=== PATIENT | female | born 1945 | race Caucasian/White ===

== ENCOUNTER 2016-09-18 23:48 | Emergency (ER) | payer MEDICARE ==
[2016-09-19] MEDS ORDERED: Morphine INJ* 4 MG/ML 1 ML CARPUJECT IV ONE (01:10)
[2016-09-19] MEDS ORDERED: NS 0.9% 1000 ML* 1,000 ML IV ONE (01:10)
[2016-09-19] MEDS ORDERED: Ondansetron INJ* 2 MG/ML VIAL IV ONE (01:10)
[2016-09-19 01:24] LABS: Hematocrit 38 % (35-47); Hemoglobin 12.7 g/dl (12.0-16.0); Mean Corpuscular HGB Conc 34 g/dl (31-36); Mean Corpuscular Hemoglobin 32 pg (27-31); Mean Corpuscular Volume 94 fL (80-97); Mean Platelet Volume 8 um3 (7.4-10.4); Red Blood Count 4.04 10^6/ul (4.0-5.4); Red Cell Distribution Width 14 % (10.5-15); White Blood Count 9.1 10^3/ul (3.5-10.8)
[2016-09-19 01:35] LABS: Albumin 3.9 g/dL (3.2-5.2); BUN/Creatinine Ratio 18.8 (8-20); Calcium 9.4 mg/dL (8.6-10.3); EGFR African American 84.5 (>60); EGFR Non-African American 65.7 (>60); Globulin 3.1 g/dL (2-4); Potassium 3.6 mmol/L (3.5-5.0); Total Bilirubin 0.8 mg/dL (0.2-1.0)
[2016-09-19] MEDS ORDERED: Iohexol 300* (CONTRAST) 10 ML SDV IV ONE (02:34)
[2016-09-19 03:12] LABS: Urine Bacteria 1+ (Absent); Urine Bilirubin Negative (Negative); Urine Glucose Negative (Negative); Urine Nitrite Negative (Negative)
[2016-09-19] MEDS ORDERED: Levofloxacin TAB* 500 MG PO ONE (03:50)
[2016-09-19] MEDS ORDERED: Sulfamethox/Trimethoprim DS 800/160* TAB PO ONE (04:03)
--- NOTE | 2016-09-19 04:47 | ED ---
Abel Daily Aidan, scribed for Oliviadee deeHelenJethro on 09/19/16 at 0102 . Abdominal Pain/Female - HPI Summary HPI Summary: 71 y/o female presents to the ED with a complaint of acute, constant, moderate ( 5/10), diffuse abdominal pain that began yesterday afternoon. Associated symptoms include a mild chest twinge. Pt denies any nausea, diarrhea, constipation, SOB, or Hx of kidney stones. SHx of appendectomy and cholecystectomy. - History of Current Complaint Chief Complaint: EDAbdPain Stated Complaint: ABD PAIN Time Seen by Provider: 09/19/16 00:37 Hx Obtained From: Patient ?: No Onset/Duration: Sudden Onset Timing: Constant Severity Initially: Moderate Severity Currently: Moderate Pain Intensity: 5 Pain Scale Used: 0-10 Numeric Location: Diffuse Radiates: No Character: Other: - not described Aggravating Factor(s): Other: - unknown Alleviating Factor(s): Other: - unknown Associated Signs and Symptoms: Positive: Other: - mild chest twinge Allergies/Adverse Reactions: Allergies Allergy/AdvReac Type Severity Reaction Status Date / Time No Known Allergies Allergy Verified 02/03/15 10:46 PMH/Surg Hx/FS Hx/Imm Hx Endocrine/Hematology History: Denies: Hx Diabetes, Hx Systemic Lupus Erythematosus, Hx Thyroid Disease Cardiovascular History: Reports: Hx Angina, Hx Hypercholesterolemia, Hx Hypertension, Hx Valvular Heart Disease - MVP, Other Cardiovascular Problems/ Disorders - cardiac arrhythmia Denies: Hx Congestive Heart Failure, Hx Coronary Artery Disease, Hx Myocardial Infarction Respiratory History: Reports: Other Respiratory Problems/Disorders - RIGHT LUNG CA Denies: Hx Asthma, Hx Chronic Obstructive Pulmonary Disease (COPD) - "MILD EMPHYSEMA" GI History: Denies: Hx Ulcer History: Denies: Hx Dialysis, Hx Renal Disease Musculoskeletal History: Denies: Hx Rheumatoid Arthritis, Hx Osteoporosis Neurological History: Reports: Hx CVA - Cancer History Cancer Type, Location and Year: LUNG Hx Chemotherapy: No - Surgical History Surgery Procedure, Year, and Place: gallbladder, appendectomy, tonsillectomy Infectious Disease History: No Infectious Disease History: Denies: Hx Hepatitis, Hx Human Immunodeficiency Virus (HIV), Traveled Outside the [place] in Last 30 Days - Family History Known Family History: Negative: Cardiac Disease, Hypertension, Diabetes - Social History Occupation: Retired Lives: Alone Alcohol Use: Daily Alcohol Amount: 2 BEERS DAILY Substance Use Type: Reports: None Smoking Status (MU): Former Smoker Have You Smoked in the Last Year: No Review of Systems Constitutional: Negative Eyes: Negative ENT: Negative Negative: Palpitations, Chest Pain - chest twinge, not described as a pain Respiratory: Negative Positive: Abdominal Pain - diffuse Genitourinary: Negative Musculoskeletal: Negative Skin: Negative Neurological: Negative Psychological: Normal All Other Systems Reviewed And Are Negative: Yes Physical Exam Triage Information Reviewed: Yes Vital Signs On Initial Exam: Initial Vitals Temp Pulse Resp BP Pulse Ox 99.0 F 86 20 121/60 96 09/19/16 00:00 09/19/16 00:00 09/19/16 00:00 09/19/16 00:00 09/19/16 00:00 Vital Signs Reviewed: Yes Appearance: Positive: Well-Appearing, No Pain Distress Skin: Positive: Warm, Skin Color Reflects Adequate Perfusion, Dry Head/Face: Positive: Normal Head/Face Inspection Eyes: Positive: EOMI, XENIA ENT: Positive: Normal ENT inspection Neck: Positive: Supple, Nontender Respiratory/Lung Sounds: Positive: Clear to Auscultation, Breath Sounds Present Cardiovascular: Positive: RRR, Pulses are Symmetrical in both Upper and Lower Extremities Abdomen Description: Positive: Soft. Negative: Nontender - diffuse abdominal tenderness Bowel Sounds: Positive: Present Musculoskeletal: Positive: Strength/ROM Intact Neurological: Positive: Sensory/Motor Intact, Alert, Oriented to Person Place, Time Psychiatric: Positive: Affect/Mood Appropriate AVPU Assessment: Alert Diagnostics - Vital Signs Vital Signs Temp Pulse Resp BP Pulse Ox 09/19/16 00:00 99.0 F 86 20 121/60 96 - Laboratory Result Diagrams: 09/19/16 00:55 09/19/16 00:55 Lab Statement: Any lab studies that have been ordered have been reviewed, and results considered in the medical decision making process. - CT ABD/PEL CT CT Interpretation: Positive (See Comments) - IMPRESSION: SUSPECTED CYSTITIS MAY BE CORRELATED WITH URINALYSIS. ENDOMETRIAL THICKENING SHOULD BE CORRELATED WITH ANY RECENT GYNECOLOGIC PROCEDURE AND POSSIBLE ENDOMETRIAL THICKENING MAY BE FURTHER EVALUATED WITH US. FOCAL RIGHT LOWER LOBE CONSOLIDATION ARE PRESENT PNEUMONIA OR SCARRING. CT Interpretation Completed By: Radiologist - [employer] Abdominal Pain Fem Course/Dx - Course Course Of Treatment: This is a 71 y/o female presents with acute, constant, moderate, diffuse abdominal pain that began yesterday afternoon. Associated symptoms include a mild chest twinge. Pt denies any nausea, diarrhea, constipation, SOB, or Hx of kidney stones. SHx of appendectomy and cholecystectomy. She does not wish to take pain medication. - Diagnoses Provider Diagnoses: UTI (urinary tract infection) Discharge - Discharge Plan Condition: Stable Disposition: HOME Discharge Disposition Comment: Please follow up with your primary care physician in 3 days. Patient Education Materials: Urinary Tract Infection in Women (ED) The documentation as recorded by the Abel amaro Aidan accurately reflects the service I personally performed and the decisions made by , Jethro Hernandez.
[2016-09-19 06:07] VITALS: BP 118/70
--- NOTE | 2016-09-19 08:05 | RAD ---
INDICATION: Abdominal pain, evaluate for diverticulitis. COMPARISON: Comparison is made with a prior CT urogram from December 06, [address] of the chest from May 25, 2016. TECHNIQUE: A CT scan of the abdomen and pelvis was performed with intravenous and oral contrast following intravenous injection of 121 ml of Omnipaque 300 nonionic contrast. Contiguous axial sections were obtained from the lung bases through the symphysis pubis. Images were reconstructed in the coronal and sagittal planes. FINDINGS: There is a masslike consolidation present at the right lung base located posterior in the right lower lobe which is unchanged from the prior CT of the chest. There are 2 small subcentimeter nodular densities in the left lower lobe which are also unchanged from the prior CT of the chest. The larger measures 0.6 cm in size. No pleural effusion is seen. The liver is moderately enlarged and decreased in attenuation suggestive of fatty infiltration. There is a small 0.6 cm fluid density lesion in the posterior segment of the right hepatic lobe which is unchanged from the prior CT urogram and most consistent with a cyst. The patient is status post cholecystectomy. The spleen is normal in size. The pancreas appears to be within normal limits. The kidneys and adrenal glands are normal in size. No hydronephrosis is seen. No significant focal renal abnormality is seen. The urinary bladder wall appears diffusely thickened. The aorta is normal in caliber with moderate calcific plaque present. No significant enlarged retroperitoneal lymph nodes are seen. The stomach, small and large bowel appear nondistended. The appendix is not visualized although no inflammatory changes are appreciated in the right lower quadrant. There is no evidence for diverticulitis or colitis. The uterus is anteverted and normal in size. There is air within the endometrial cavity. There is also suggestion of possible endometrial thickening. No free intraperitoneal air is or fluid seen. No significant focal osseous abnormality is seen. IMPRESSION: 1. THICKENING OF THE URINARY BLADDER WALL SUGGESTING THE POSSIBILITY OF CYSTITIS, RECOMMEND CLINICAL CORRELATION. 2. POSSIBLE ENDOMETRIAL THICKENING AND AIR WITHIN THE ENDOMETRIAL CAVITY RECOMMEND CORRELATION WITH POSSIBLE RECENT GYNECOLOGIC PROCEDURE VERSUS INFECTION. RECOMMEND A PELVIC ULTRASOUND FOR FURTHER EVALUATION. 3. RIGHT LOWER LOBE MASSLIKE CONSOLIDATION AND LEFT BASILAR PULMONARY NODULES, UNCHANGED.
--- NOTE | 2016-09-22 12:19 | PN ---
Progress Note - Progress Note Note: Patient was discharged on Bactrim and Macrobid, which a sensitive. No further action needed.
== END 2016-09-19 05:59 | disposition home or self-care (01) ==
LOC: ED 23:48
DX: N39.0 Urinary tract infection, site not specified (principal); R10.9 Unspecified abdominal pain; Z87.891 Personal history of nicotine dependence
CPT/HCPCS: 36415; 74177; 80053; 81003; 81015; 83605; 83690; 85025; 85610; 85730; 87040; 87077; 87086; 87186; 96361; 96374; 96375; 99282; A9270-GY; J2270; J2405; Q9967

== ENCOUNTER 2017-08-21 07:10 | Emergency (ER) | payer MEDICARE ==
[2017-08-21] MEDS ORDERED: Acetaminophen TAB* 325 MG PO ONE (07:51)
--- NOTE | 2017-08-21 08:23 | RAD ---
INDICATION: Trauma. COMPARISON: There are no prior studies available for comparison. TECHNIQUE: Contiguous axial sections were obtained from the skull base through the T3 vertebra. Images were reconstructed in the sagittal and coronal planes. FINDINGS: There is straightening of the cervical spine with loss of the normal cervical lordosis. No prevertebral soft tissue swelling or fracture is seen. At the C1-C2 level there is calcification around the odontoid process most consistent with chronic arthritic change. At the C3-C4 level there is mild posterior uncinate process spurring and hypertrophic changes within the facet joints. No significant spinal canal or neural foraminal narrowing is seen. At the C3-C4 level there is mild posterior uncinate process spurring and hypertrophic changes within the facet joints. No significant spinal canal narrowing is present. There is mild to moderate bilateral neural foraminal narrowing. At the C4-C5 level there is posterior uncinate process spurring and hypertrophic changes within the facet joints. No significant spinal canal narrowing is present. There is mild to moderate bilateral neural foraminal narrowing. At the C5-C6 level there is mild posterior uncinate process spurring and hypertrophic changes within the facet joints. No significant spinal canal narrowing is present. There is moderate bilateral neural foraminal narrowing. At C6-C7 level there is posterior uncinate process spurring which causes mild spinal canal narrowing. There is moderate to severe bilateral neural foraminal narrowing. IMPRESSION: 1. STRAIGHTENING OF THE CERVICAL SPINE, NO EVIDENCE FOR FRACTURE OR SUBLUXATION. 2. MODERATE CERVICAL SPONDYLOSIS.
--- NOTE | 2017-08-21 08:23 | RAD ---
INDICATION: Head injury, on Coumadin. COMPARISON: Comparison is made with a prior CT of the brain from August 01, 2016. TECHNIQUE: Contiguous axial sections of the brain were obtained from the skull base to the vertex without contrast. FINDINGS: The ventricles, cisterns and sulci are enlarged consistent with diffuse atrophy. There is more focal atrophy present within the midbrain and miguel on the right side and cerebellum which appears unchanged. No other focal abnormality or mass effect is seen. There is no evidence for hemorrhage. No significant focal osseous abnormality is seen. The visualized portion of the paranasal sinuses and mastoid air cells appear clear. IMPRESSION: 1. NO EVIDENCE FOR ACUTE INTRACRANIAL ABNORMALITY. 2. RELATIVELY SEVERE ATROPHY WITHIN THE BRAINSTEM AND CEREBELLUM, UNCHANGED.
[2017-08-21 08:43] VITALS: BP 120/84
--- NOTE | 2017-08-21 09:36 | ED ---
Zeina Daily Abhishek, scribed for Genie Mendoza MD on 08/21/17 at 0848 . Head Injury - HPI Summary HPI Summary: This patient is a 72 year old F presenting to [facility] with a chief complaint of Head Injury since today (08/21/17) morning. The patient states she was getting up and the wheelchair slipped when leaning on it. Patient later states she thought she could attempt to make it to the edge between the chair and the bed, to transfer from bed to the wheelchair (per usual) but failed and she hit the laminate concrete floor and hit her head. According to the patient, after the fall, [employer] contacted her son and he helped her onto the wheelchair. Also according to the patient, the injury is no longer painful (when site of injury is not palpated), however she is aware of it. The head injury is described as discrete on the back of the head. Patient has a PMHx of stroke (2003) with left sided weakness. The patient rates the pain 0/10 in severity. Symptoms aggravated by nothing. Symptoms alleviated by nothing. Patient reports fatigue. Patient denies LOC, dizziness, chest pain, SOB, N/V, neck pain, and states there are no other pertinent injuries. The following medications are taken by the patient: Warfarin - History Of Current Complaint Chief Complaint: EDHeadInjury Stated Complaint: FALL Time Seen by Provider: 08/21/17 07:24 Hx Obtained From: Patient Mechanism Of Injury: Fall From Height Of: - standing Onset/Duration: Started Hours Ago - Morning (08/21/17), Traumatic, Still Present Onset of Pain: Immediate, Hours - Morning (08/21/17) Severity Currently: None Severity Initially: Mild Pain Intensity: 0 Pain Scale Used: 0-10 Numeric Location of Head Injury: Occipital Location: Discrete At: - post occiput Character: Aching Aggravating Factor(s): Other: - Nothing Alleviating Factor(s): Other: - Nothing Associated Signs And Symptoms: Negative Anticoagulant Therapy: Coumadin - Allergies/Home Medications Allergies/Adverse Reactions: Allergies Allergy/AdvReac Type Severity Reaction Status Date / Time Amoxicillin [From Augmentin] Allergy Diarrhea Verified 08/21/17 07:24 Clavulanic Acid Allergy Diarrhea Verified 08/21/17 07:24 [From Augmentin] PMH/Surg Hx/FS Hx/Imm Hx Previously Healthy: No Endocrine/Hematology History: Denies: Hx Diabetes, Hx Systemic Lupus Erythematosus, Hx Thyroid Disease Cardiovascular History: Reports: Hx Angina, Hx Hypercholesterolemia, Hx Hypertension, Hx Valvular Heart Disease - MVP, Other Cardiovascular Problems/ Disorders - cardiac arrhythmia Denies: Hx Congestive Heart Failure, Hx Coronary Artery Disease, Hx Myocardial Infarction Respiratory History: Reports: Other Respiratory Problems/Disorders - RIGHT LUNG CA Denies: Hx Asthma, Hx Chronic Obstructive Pulmonary Disease (COPD) - "MILD EMPHYSEMA" GI History: Denies: Hx Ulcer History: Denies: Hx Dialysis, Hx Renal Disease Musculoskeletal History: Denies: Hx Rheumatoid Arthritis, Hx Osteoporosis Neurological History: Reports: Hx CVA - Cancer History Cancer Type, Location and Year: LUNG Hx Chemotherapy: No - Surgical History Surgery Procedure, Year, and Place: gallbladder, appendectomy, tonsillectomy Infectious Disease History: No Infectious Disease History: Denies: Hx Hepatitis, Hx Human Immunodeficiency Virus (HIV), Traveled Outside the [place] in Last 30 Days - Family History Known Family History: Positive: Other Negative: Cardiac Disease, Hypertension, Diabetes - Social History Lives: Alone - has link to life and son has apartment nearby Alcohol Use: Occasionally Substance Use Type: Reports: None Smoking Status (MU): Former Smoker Have You Smoked in the Last Year: No Review of Systems Positive: Fatigue Eyes: Negative ENT: Negative Negative: Chest Pain Negative: Shortness Of Breath Negative: Vomiting, Nausea Genitourinary: Negative Musculoskeletal: Other - Negative neck pain Positive: Other - Head injury on the back of the head Skin: Negative Neurological: Other - Negative LOC Psychological: Normal All Other Systems Reviewed And Are Negative: Yes Physical Exam - Summary Physical Exam Summary: Appearance: Well-appearing, no pain distress, Well-nourished Skin: Warm, color reflects adequate perfusion Head: Normal Head/Face inspection. No sign of trauma Eyes: Conjunctiva clear PERRL EOMI ENT: Normal . TM's without hemotympanum. Neck: Supple, nontender Respiratory: Lungs clear, Normal breath sounds, no respiratory distress; chest wall nontender Cardio: RRR, No murmur, pulses normal, brisk capillary refill Abdomen: soft, nontender Bowel sounds: present Musculoskeletal: Strength Intact/ ROM intact, No bony tenderness Neuro: Alert, muscle tone normal, facial symmetry, speech normal, pre-existing left hemiparesis, moves all extremities well, no new focal deficit. Psych: normal Triage Information Reviewed: Yes Vital Signs On Initial Exam: Initial Vitals Temp Pulse Resp BP Pulse Ox 97.1 F 73 17 116/73 96 08/21/17 07:19 08/21/17 07:19 08/21/17 07:19 08/21/17 07:19 08/21/17 07:19 Vital Signs Reviewed: Yes - [place] Coma Scale Coma Scale Total: 15 Diagnostics - Vital Signs Vital Signs Temp Pulse Resp BP Pulse Ox 08/21/17 08:42 98.1 F 66 18 120/84 96 08/21/17 07:38 66 93 08/21/17 07:37 122/85 08/21/17 07:19 97.1 F 73 17 116/73 96 - Laboratory Lab Statement: Any lab studies that have been ordered have been reviewed, and results considered in the medical decision making process. - CT Brain CT CT Interpretation Completed By: Radiologist - Brain CT reveals 1. NO EVIDENCE FOR ACUTE INTRACRANIAL ABNORMALITY. 2. RELATIVELY SEVERE ATROPHY WITHIN THE BRAINSTEM AND CEREBELLUM, UNCHANGED. ED physician has reviewed this radiology report. Cervical spine CT CT Interpretation Completed By: Radiologist - CT Cervical Spine reveals 1. STRAIGHTENING OF THE CERVICAL SPINE, NO EVIDENCE FOR FRACTURE OR SUBLUXATION. 2. MODERATE CERVICAL SPONDYLOSIS. ED physician has reviewed this radiology report. Re-Evaluation - Re-Evaluation First Eval Re-Evaluation Time: 09:00 - informed of CT results. No new C/o. agrees to d/c. Change: Improved Head Injury Course/Dx Course Of Treatment: Pt medications were reviewed this visit. The following medications are taken by the patient: Warfarin. Patients allergies were noted. CT Cervical Spine reveals 1. STRAIGHTENING OF THE CERVICAL SPINE, NO EVIDENCE FOR FRACTURE OR SUBLUXATION. 2. MODERATE CERVICAL SPONDYLOSIS. Brain CT reveals 1. NO EVIDENCE FOR ACUTE INTRACRANIAL BNORMALITY. Pt had neg CT brain and neg CT cervical spine. No new symptoms while being observed in ED. Pt stable for DC, agrees to DC. 2. RELATIVELY SEVERE ATROPHY WITHIN THE BRAINSTEM AND CEREBELLUM, UNCHANGED. ED physician has reviewed these radiology reports and agrees. The patient will be discharged home. The dx will be scalp contusion and head injury. - Diagnoses Differential Diagnosis/HQI/PQRI: Cerebral Contusion, Cervical Sprain, Concussion Without LOC, Contusion, Intracranial Bleed, Skull Fracture Provider Diagnoses: Scalp contusion, Head injury Discharge - Discharge Plan Condition: Stable Disposition: HOME Patient Education Materials: Head Injury (ED), Fall Prevention (ED) Referrals: Jennyfer Gibbs NP [Primary Care Provider] - Additional Instructions: You CT brain and CT of your cervical spine did not show any abnormality. You may resume your usual activities. We gave you one dose of acetaminophen (tylenol) at 0808. Return to the ER if you have any new or worsening symptoms. The documentation as recorded by the Zeina amaro Abhishek accurately reflects the service I personally performed and the decisions made by , Genie Mendoza MD.
== END 2017-08-21 09:06 | disposition home or self-care (01) ==
LOC: ED 07:10
DX: S09.90XA Unspecified injury of head, initial encounter (principal); S00.03XA Contusion of scalp, initial encounter; E78.00 Pure hypercholesterolemia, unspecified; I10 Essential (primary) hypertension; I34.1 Nonrheumatic mitral (valve) prolapse; J44.9 Chronic obstructive pulmonary disease, unspecified; C34.91 Malignant neoplasm of unspecified part of right bronchus or lung; Z87.891 Personal history of nicotine dependence; W01.0XXA Fall on same level from slipping, tripping and stumbling without subsequent striking against object, initial encounter; Y93.9 Activity, unspecified; Y92.9 Unspecified place or not applicable
CPT/HCPCS: 70450; 72125; 99282; A9270-GY

== ENCOUNTER 2018-04-24 06:25 | Emergency (ER) | payer MEDICARE ==
--- OUTSIDE RECORDS SUMMARY | 2018-04-24 06:36 | XMS REPORT ---
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 [address] PayID: [id number] [place] [address] Problems Description No Information Family History Date Family Member(s) Problem(s) Comments Father due to CHF () Father due to Cancer, Lung () - age 61 Mother due to "Old Age" () First Son Healthy Second Son Healthy First Brother Cancer, Prostate First Sister No Current Problems Paternal Aunts Cancer, Breast Maternal Aunts Cancer, Breast Social History Type Date Description Comments Marital Status Lives With Son Lives With Grandchildren Lives With daughter in law Occupation Retired Cigarette Use Former Cigarette Smoker 2 PPD x 40 years ETOH Use Currently consumes alcohol 21 drinks/week Smoking Patient is a former smoker Allergies, Adverse Reactions, Alerts Date Description Reaction Status Severity Comments 11/16/2015 Augmentin diarrhea active Medications Medication Date Status Form Strength Qnty SIG Indications Ordering Provider Silver 04/23 Active Cream 1% 50gm apply twice L03.116 Saba Sulfadiazine /2018 per day P. until wound Blegen, heals as M.D. directed Cephalexin 04/23 Active Capsules 500mg 28cap 1 by mouth L03.116 Saba /2017 s four times P. per day x 7 Blegen, days for M.D. cellulitis Wheelchair (Not 01/10 Active 1unit as Matt Power) s directed; Mik garcia MD additional letter. Brandee Q6edge Power 03/15 Active 1unit pride Matt Wheelchair /2015 s q6edge [employer] power saroj, MD w/height adjustable armrests and 1 pair of batteries Warfarin Sodium 12/15 Active Tablets 1mg 30tab Take One Jessica /2016 s Tablet By Shortle, Mouth Every DOUBLE END TENON OPERATOR Day Or as Directed Folic Acid 11/15 Active Tablets 1mg 90tab 1 by mouth s every day JEANIE Angel Calcium 1200 11/15 Active Chewtabs 9203-9221 mg-Unit JEANIE Angel Fish Oil 11/15 Active Capsules 1200mg 1 tab po JEANIE Albarado Vitamin D3 11/15 Active Capsules 1000Unit CYNTHIA Angel-Brad Vitamin B-12 11/15 Active Tablets 500mcg Sub JEANIE Angel Fenofibrate 11/15 Active Tablets 160mg 90tab Take One s Tablet By Sridhar Angel Every PARIMUTUEL CLERK-C Day With Food Allopurinol 11/15 Active Tablets 300mg 90tab Take One s Tablet By Shortle, Mouth Every DOUBLE END TENON OPERATOR Day Warfarin Sodium 11/15 Active Tablets 4mg 90tab Take Three Jessica s Tablets By Shortle, Mouth Every DOUBLE END TENON OPERATOR Day Or as Directed Warfarin Sodium 11/15 Active Tablets 2mg 30tab Take One Jessica s Tablet By Shortle, Mouth Every DOUBLE END TENON OPERATOR Day Or as Directed Paxil 11/15 Active Tablets 20mg 60tab Take One Jessica s Tablet By Shortle, Mouth Every DOUBLE END TENON OPERATOR Day Atorvastatin 11/15 Active Tablets 40mg 30tab Take One Jessica Calcium s Tablet By Shortle, Mouth Every DOUBLE END TENON OPERATOR Day Metoprolol 11/15 Active Tablets 25mg 60tab Take One Jessica Tartrate s Tablet By Shortle, Mouth Twice DOUBLE END TENON OPERATOR A Day Cephalexin 01/08 Hx Capsules 500mg 9caps take one capsule Mik - three times , 04/09 a day for 3 days. Bactrim DS 01/05 Hx Tablets 800-160mg 10tab take 1 s tablet by Mik - mouth every , 04/09 12 hours for 5 days Meclizine HCL 06/01 Hx Tablets 25mg 30tab take by Drew Adair s mouth 1/2 Mik - to 1 tablet , 06/01 3 times per day for sensation of motion Hydrochlorothiazid 06/01 Hx Tablets 12.5mg 30tab 1 tab by Drew Gutierrez s mouth every Mik - morning , 06/01 Macrobid 11/04 Hx Capsules 100mg 20cap 1 tab by N39.0 Jennyfer s mouth twice Bernie, - a day x10 PARIMUTUEL CLERK-C Lactulose 10/15 Hx Solution 10GM/15ML 500ml 1 tbs by Fernando mouth twice Asya Mcdonnell, - a day until PARIMUTUEL CLERK-C 11/04 bowel movements occur Macrobid 10/10 Hx Capsules 100mg 14cap 1 tab by R10.9 Jennyfer s mouth twice Bernie, - a day x7 PARIMUTUEL CLERK-C Doxycycline 12/13 Hx Capsules 100mg 20cap 1 tab by J18.9 Jennyfer Hyclate s mouth twice Bernie, - a day x 10 PARIMUTUEL CLERK-C Cephalexin 12/06 Hx Tablets 500mg 21tab take 1 J20.9 s tablet by Bernie, - mouth three PARIMUTUEL CLERK-C 09/30 times a day /2016 x 7 days Ventolin HFA 12/06 Hx Aerosol 108(90Bas 1unit 2 puffs J20.9 e) s every every Bernie, - mcg/Act 4-6 hours PARIMUTUEL CLERK-C 02/20 as needed /2016 wheezing/ti ghtness Digoxin 11/15 Hx Tablets 125mcg 90tab 1 by mouth s every day Enoc Angel 09/30 Cranberry 11/15 Hx Capsules 400mg 2400 mg Jennyfer /2015 daily Enoc Angel 11/04 Nitrofurantoin Hx Capsules 100mg Bapana, Monohydrate/Macroc /0000 Jethro Stubbs MD 09/23 Immunizations CPT Code Status Date Vaccine Lot # [id number] Given 04/02/2018 Tdap (Adacel) [id number] 31895 Given 06/01/2017 Influenza Vaccine High Dose PF [id number] 14823 Given 06/21/2016 Influenza Virus Vaccine, Quadrivalent, 3 Yr > Quad, Preserv Free 40334 Given 01/15/2016 Prevnar-13 Pneumococcal Conjugate Vaccine [id number] Given 03/31/2013 Tdap (Adacel) 29740 Given 03/31/2013 Td Age 7 to adult (Tenivac, Decavac, [employer]) 11490 Given 01/27/2008 Pneumovax 23 (PPSV23) 65+ years or high risk 2 to 64 year old Vital Signs Date Vital Result Comment 04/23/2018 BP Systolic 112 mmHg BP Diastolic 70 mmHg Heart Rate 64 /min Body Temperature 97.8 F Respiratory Rate 16 /min 04/09/2018 BP Systolic 110 mmHg BP Diastolic 70 mmHg Heart Rate 68 /min Body Temperature 97.1 F Respiratory Rate 16 /min 04/02/2018 BP Systolic 98 mmHg BP Diastolic 60 mmHg Heart Rate 60 /min Body Temperature 98.6 F Respiratory Rate 16 /min O2 % BldC Oximetry 93 % 02/02/2018 BP Systolic 132 mmHg BP Diastolic 70 mmHg Heart Rate 60 /min Body Temperature 97.9 F Respiratory Rate 16 /min 01/05/2018 BP Systolic 118 mmHg BP Diastolic 70 mmHg Heart Rate 74 /min Body Temperature 97.4 F Respiratory Rate 18 /min 06/01/2017 BP Systolic 102 mmHg BP Diastolic 72 mmHg Heart Rate 68 /min Body Temperature 97.7 F Respiratory Rate 16 /min 02/20/2017 BP Systolic 118 mmHg BP Diastolic 70 mmHg Heart Rate 84 /min Body Temperature 97.0 F Respiratory Rate 20 /min 01/12/2017 BP Systolic 120 mmHg BP Diastolic 80 mmHg Heart Rate 73 /min Body Temperature 97.5 F Respiratory Rate 16 /min 11/04/2016 BP Systolic 126 mmHg BP Diastolic 80 mmHg Heart Rate 104 /min Body Temperature 96.6 F Respiratory Rate 18 /min O2 % BldC Oximetry 98 % 10/10/2016 Weight 205.00 lb Weight in kg's 92.988 BP Systolic 108 mmHg BP Diastolic 70 mmHg Heart Rate 71 /min Body Temperature 96.5 F Respiratory Rate 16 /min O2 % BldC Oximetry 95 % 09/30/2016 Weight 200.00 lb pt stated Weight in kg's 90.720 BP Systolic 100 mmHg BP Diastolic 78 mmHg Heart Rate 80 /min Body Temperature 96.9 F Respiratory Rate 16 /min O2 % BldC Oximetry 98 % 01/15/2016 BP Systolic 122 mmHg BP Diastolic 80 mmHg Heart Rate 74 /min Body Temperature 97.6 F O2 % BldC Oximetry 98 % 12/16/2015 BP Systolic 100 mmHg BP Diastolic 64 mmHg Heart Rate 81 /min Body Temperature 98.3 F O2 % BldC Oximetry 95 % 12/14/2015 Weight 186.00 lb Weight in kg's 84.370 BP Systolic 150 mmHg BP Diastolic 70 mmHg Heart Rate 106 /min Body Temperature 100.9 F O2 % BldC Oximetry 91 % 12/07/2015 BP Systolic 110 mmHg BP Diastolic 60 mmHg Heart Rate 70 /min Body Temperature 97.4 F O2 % BldC Oximetry 96 % post neb 11/10/2015 BP Systolic 110 mmHg BP Diastolic 70 mmHg Heart Rate 70 /min O2 % BldC Oximetry 97 % Results Test Date Test Result H/L Range Note Inr/Protime 04/18/2018 Inr 1.69 High 0.77-1.02 Inr/Protime 04/11/2018 Inr 2.11 High 0.77-1.02 Inr/Protime 04/04/2018 Inr 4.06 High 0.77-1.02 Inr/Protime 03/21/2018 Inr 3.22 High 0.77-1.02 Inr/Protime 03/15/2018 Inr 2.04 High 0.77-1.02 Inr/Protime 03/07/2018 Inr 1.71 High 0.77-1.02 PT With Inr 02/27/2018 International 1.46 Normalized Ratio Inr/Protime 02/21/2018 Inr 1.88 High 0.77-1.02 Inr/Protime 01/24/2018 Inr 2.23 High 0.77-1.02 Inr/Protime 01/11/2018 Inr 2.87 High 0.77-1.02 Urine Culture And 01/05/2018 Urine Culture SEE RESULT 1 Sensitivities BELOW Urine DIP 01/05/2018 Leukocytes +++ Neg Urine Nitrites positive Neg Urobilinogen norm Norm Total Protein, Urine trace Neg Urine pH 6.0 5-6 Urine Blood 250 High Neg Specific [place] 1.015 1.01-1.02 Urine Ketones neg Neg Urine Bilirubin positive Neg Urine Glucose norm Norm Inr/Protime 01/03/2018 Inr 2.08 High 0.77-1.02 Inr/Protime 12/13/2017 Inr 2.36 High 0.77-1.02 Inr/Protime 11/29/2017 Inr 2.11 High 0.77-1.02 Inr/Protime 11/22/2017 Inr 2.07 High 0.77-1.02 Inr/Protime 11/15/2017 Inr 1.78 High 0.77-1.02 Inr/Protime 11/08/2017 Inr 1.78 High 0.77-1.02 Inr/Protime 11/01/2017 Inr 1.96 High 0.77-1.02 Inr/Protime 10/25/2017 Inr 1.85 High 0.77-1.02 Inr/Protime 10/18/2017 Inr 1.37 High 0.77-1.02 Inr/Protime 10/16/2017 Inr 1.94 High 0.77-1.02 Inr/Protime 10/13/2017 Inr 5.66 High 0.77-1.02 2, 3 Inr/Protime 10/11/2017 Inr 7.38 High 0.77-1.02 4 Inr/Protime 10/04/2017 Inr 2.43 High 0.77-1.02 Inr/Protime 09/27/2017 Inr 3.25 High 0.77-1.02 Inr/Protime 09/13/2017 Inr 2.54 High 0.77-1.02 Inr/Protime 09/06/2017 Inr 2.91 High 0.77-1.02 Inr/Protime 08/30/2017 Inr 3.61 High 0.77-1.02 Inr/Protime 08/23/2017 Inr 3.54 High 0.77-1.02 5 Inr/Protime 08/16/2017 Inr 2.76 High 0.77-1.02 6 Inr/Protime 08/09/2017 Inr 1.89 High 0.77-1.02 7 Laboratory test 08/02/2017 Inr 1.51 High 0.77-1.02 8 finding Inr/Protime 07/27/2017 Inr 1.44 High 0.89-1.11 9, 10 Inr/Protime 07/12/2017 Inr 2.47 High 0.89-1.11 Inr/Protime 06/29/2017 Inr 4.27 High 0.89-1.11 11 Inr/Protime 06/14/2017 Inr 2.74 High 0.89-1.11 Inr/Protime 06/07/2017 Inr 2.00 High 0.89-1.11 Inr/Protime 05/31/2017 Inr 3.43 High 0.89-1.11 Inr/Protime 05/24/2017 Inr 2.72 High 0.89-1.11 Inr/Protime 05/17/2017 Inr 4.35 High 0.89-1.11 Inr/Protime 05/10/2017 Inr 2.61 High 0.89-1.11 Inr/Protime 05/03/2017 Inr 4.12 High 0.89-1.11 Inr/Protime 04/19/2017 Inr 2.53 High 0.89-1.11 Inr/Protime 04/12/2017 Inr 1.93 High 0.89-1.11 Inr/Protime 04/05/2017 Inr 2.11 High 0.89-1.11 Inr/Protime 03/22/2017 Inr 3.10 High 0.89-1.11 Inr/Protime 03/15/2017 Inr 4.06 High 0.89-1.11 Inr/Protime 03/08/2017 Inr 3.26 High 0.89-1.11 Inr/Protime 03/01/2017 Inr 4.66 High 0.89-1.11 Inr/Protime 02/08/2017 Inr 2.54 High 0.89-1.11 12 Inr/Protime 02/01/2017 Inr 3.03 High 0.89-1.11 Laboratory test 01/13/2017 Urine Culture SEE RESULT BELOW 13, 14 finding Urine DIP 01/13/2017 Leukocytes ++ Neg Urine Nitrites neg Neg Urobilinogen neg Norm Total Protein, Urine neg Neg Urine pH 5 5-6 Urine Blood 250 High Neg Specific [place] 1.010 1.01-1.02 Urine Ketones neg Neg Urine Bilirubin neg Neg Urine Glucose norm Norm Inr/Protime 01/12/2017 Inr 2.29 High 0.89-1.11 15 CBC Auto Diff 01/12/2017 White Blood Count 6.2 10^3/uL 3.5-10.8 15 Red Blood Count 4.34 10^6/uL 4.0-5.4 15 Hemoglobin 13.4 g/dL 12.0-16.0 15 Hematocrit 40 % 35-47 15 Mean Corpuscular Volume 92 fL 80-97 15 Mean Corpuscular Hemoglobin 31 pg 27-31 15 Mean Corpuscular HGB Conc 34 g/dL 31-36 15 Red Cell Distribution Width 15 % 10.5-15 15 Platelet Count 150 10^3/uL 150-450 15 Mean Platelet Volume 9 um3 7.4-10.4 15 Abs Neutrophils 3.1 10^3/uL 1.5-7.7 15 Abs Lymphocytes 2.4 10^3/uL 1.0-4.8 15 Abs Monocytes 0.6 10^3/uL 0-0.8 15 Abs Eosinophils 0.1 10^3/uL 0-0.6 15 Abs Basophils 0 10^3/uL 0-0.2 15 Abs Nucleated RBC 0 10^3/uL 15 Granulocyte % 49.6 % 38-83 15 Lymphocyte % 39.1 % 25-47 15 Monocyte % 9.4 % High 1-9 15 Eosinophil % 1.2 % 0-6 15 Basophil % 0.7 % 0-2 15 Nucleated Red Blood Cells % 0.1 15 Inr/Protime 01/04/2017 Inr 2.51 High 0.89-1.11 Inr/Protime 12/28/2016 Inr 3.19 High 0.89-1.11 Inr/Protime 12/21/2016 Inr 1.84 High 0.89-1.11 Inr/Protime 12/14/2016 Inr 1.98 High 0.89-1.11 Inr/Protime 11/30/2016 Inr 2.01 High 0.89-1.11 Inr/Protime 11/23/2016 Inr 1.59 High 0.89-1.11 Urine DIP 11/04/2016 Leukocytes TRACE Neg Urine Nitrites NEG Neg Urobilinogen NORM Norm Total Protein, Urine TRACE Neg Urine pH 5 5-6 Urine Blood TRACE Neg Specific [place] 1.010 1.01-1.02 Urine Ketones NEG Neg Urine Bilirubin NEG Neg Urine Glucose NORM Norm Laboratory test 11/04/2016 Urine Culture SEE RESULT 16, 17 finding BELOW Inr/Protime 11/02/2016 Inr 2.11 High 0.89-1.11 Inr/Protime 10/19/2016 Inr 2.67 High 0.89-1.11 Inr/Protime 10/12/2016 Inr 2.96 High 0.89-1.11 Laboratory test 10/05/2016 Hemoglobin A1c 5.4 % Less than 6.0 18 finding Lipid Profile 10/05/2016 Triglycerides 104 mg/dL 19 (Trig/Chol/HDL) Cholesterol 188 mg/dL 20 HDL Cholesterol 50.6 mg/dL 21 LDL Cholesterol 117 mg/dL 22 Inr/Protime 10/05/2016 Inr 1.74 High 0.89-1.11 Inr/Protime 09/28/2016 Inr 2.09 High 0.89-1.11 Inr/Protime 09/23/2016 Inr 3.89 High 0.89-1.11 CBC Auto Diff 09/19/2016 White Blood Count 9.1 10^3/uL 3.5-10.8 Red Blood Count 4.04 10^6/uL 4.0-5.4 Hemoglobin 12.7 g/dL 12.0-16.0 Hematocrit 38 % 35-47 Mean Corpuscular Volume 94 fL 80-97 Mean Corpuscular Hemoglobin 32 pg High 27-31 Mean Corpuscular HGB Conc 34 g/dL 31-36 Red Cell Distribution Width 14 % 10.5-15 Platelet Count 127 10^3/uL Low 150-450 Mean Platelet Volume 8 um3 7.4-10.4 Abs Neutrophils 7.3 10^3/uL 1.5-7.7 Abs Lymphocytes 1.1 10^3/uL 1.0-4.8 Abs Monocytes 0.6 10^3/uL 0-0.8 Abs Eosinophils 0 10^3/uL 0-0.6 Abs Basophils 0 10^3/uL 0-0.2 Abs Nucleated RBC 0 10^3/uL Granulocyte % 80.6 % 38-83 Lymphocyte % 12.6 % Low 25-47 Monocyte % 6.2 % 1-9 Eosinophil % 0.3 % 0-6 Basophil % 0.3 % 0-2 Nucleated Red Blood Cells % 0 Comp Metabolic Panel 09/19/2016 Sodium 135 mmol/L 133-145 Potassium 3.6 mmol/L 3.5-5.0 Chloride 106 mmol/L 101-111 Co2 Carbon Dioxide 20 mmol/L Low 22-32 Anion Gap 9 mmol/L 2-11 Glucose 147 mg/dL High 70-100 Blood Urea Nitrogen 16 mg/dL 6-24 Creatinine 0.85 mg/dL 0.51-0.95 BUN/Creatinine Ratio 18.8 8-20 Calcium 9.4 mg/dL 8.6-10.3 Total Protein 7.0 g/dL 6.4-8.9 Albumin 3.9 g/dL 3.2-5.2 Globulin 3.1 g/dL 2-4 Albumin/Globulin Ratio 1.3 1-3 Total Bilirubin 0.80 mg/dL 0.2-1.0 Alkaline Phosphatase 49 U/L 34-104 Alt 9 U/L 7-52 Ast 16 U/L 13-39 Egfr Non- 65.7 >60 Egfr 84.5 >60 23 Laboratory test finding 09/19/2016 Lipase 37 U/L 11.0-82.0 Inr/Protime 09/19/2016 Inr 3.66 High 0.89-1.11 Laboratory test finding 09/19/2016 Lactic Acid 0.8 mmol/L 0.5-2.0 24 Laboratory test finding 09/19/2016 Partial Thrombo Time 37.1 seconds High 26.0-36.3 PTT Lactic Acid 2.3 mmol/L High 0.5-2.0 25 Urinalysis Profile 09/19/2016 Urine Color Yellow Urine Appearance Cloudy Urine Specific [place] 1.021 1.010-1.030 Urine pH 5.0 5-9 Urine Urobilinogen Positive Negative Urine Ketones Negative Negative Urine Protein 1+(30 mg/dL) Negative Urine Leukocytes 3+ Negative Urine Blood 2+ Negative Urine Nitrite Negative Negative Urine Bilirubin Negative Negative Urine Glucose Negative Negative Urine White Blood Cell 3+(>20/hpf) Absent Urine Red Blood Cell 3+(>10/hpf) Absent Urine Bacteria 1+ Absent Urine Squamous Epithelial Cell Present Absent Urine Yeast Present Absent Laboratory test finding 09/19/2016 Blood Culture SEE RESULT BELOW 26 Urine Culture SEE RESULT BELOW 27 Inr/Protime 09/14/2016 Inr 2.85 High 0.89-1.11 28 Inr/Protime 09/07/2016 Inr 1.81 High 0.89-1.11 29 Inr/Protime 08/31/2016 Inr 1.56 High 0.89-1.11 30 Inr/Protime 08/24/2016 Inr 2.69 High 0.89-1.11 31 Inr/Protime 08/17/2016 Inr 3.36 High 0.89-1.11 32 Inr/Protime 08/10/2016 Inr 3.11 High 0.89-1.11 33 Laboratory test finding 08/01/2016 Inr 2.01 High 0.89-1.11 Inr/Protime 07/27/2016 Inr 2.84 High 0.89-1.11 34 Inr/Protime 07/20/2016 Inr 2.94 High 0.89-1.11 35 Inr/Protime 07/13/2016 Inr 1.74 High 0.89-1.11 36 Inr/Protime 06/29/2016 Inr 1.97 High 0.89-1.11 37 Inr/Protime 06/15/2016 Inr 2.95 High 0.89-1.11 38 Inr/Protime 06/01/2016 Inr 2.18 High 0.89-1.11 39 Inr/Protime 05/18/2016 Inr 2.93 High 0.89-1.11 40 Inr/Protime 05/11/2016 Inr 2.22 High 0.89-1.11 41 Inr/Protime 05/04/2016 Inr 3.03 High 0.89-1.11 42 Inr/Protime 04/20/2016 Inr 2.26 High 0.89-1.11 43 Inr/Protime 04/13/2016 Inr 2.48 High 0.89-1.11 44 Inr/Protime 04/06/2016 Inr 3.53 High 0.89-1.11 45 Inr/Protime 03/30/2016 Inr 3.87 High 0.89-1.11 46 Inr/Protime 03/09/2016 Inr 2.17 High 0.89-1.11 47 Inr/Protime 03/02/2016 Inr 2.23 High 0.89-1.11 48 Inr/Protime 02/24/2016 Inr 1.89 High 0.89-1.11 49 Inr/Protime 02/10/2016 Inr 2.30 High 0.89-1.11 50 Inr/Protime 01/27/2016 Inr 3.20 High 0.89-1.11 51 Inr/Protime 01/13/2016 Inr 3.21 High 0.89-1.11 52 Inr/Protime 01/06/2016 Inr 2.15 High 0.89-1.11 53 Inr/Protime 12/30/2015 Inr 1.65 High 0.89-1.11 54 Inr/Protime 12/25/2015 Inr 2.51 High 0.89-1.11 Inr/Protime 12/23/2015 Inr 4.61 High 0.89-1.11 Inr/Protime 12/16/2015 Inr 5.49 High 0.89-1.11 55 Urine DIP 12/07/2015 Leukocytes + Neg Urine Nitrites NEG Neg Urobilinogen NORM Norm Total Protein, Urine + Neg Urine pH 5 5-6 Urine Blood ++ Neg Specific [place] 1.020 1.01-1.02 Urine Ketones NEG Neg Urine Bilirubin NEG Neg Urine Glucose NORM Norm Inr/Protime 12/02/2015 Inr 2.31 High 0.89-1.11 Laboratory test finding 11/25/2015 Inr 1.97 High 0.89-1.11 Laboratory test finding 11/18/2015 Inr 3.67 High 0.89-1.11 1 SEE RESULT BELOW Name: SONY HART : [address]: Matt Houser MD Acct: [id number] Unit: [id number] AGE: 72 Location: [facility] Re01/05/18 SEX: F Status: REG REF SPEC: [id number] TERE: 01/05/18 [facility] DR: Matt Houser MD REQ: [id number] RECD: 01/05/18 STATUS: COMP _ SOURCE: URINE SPDESC: ORDERED: Urine Culture COMMENTS: [id number] Procedure Result Reported Site Urine Culture Final 01/08/18- 0819 ML Organism 1 ESCHERICHIA COLI [place] Count >100,000 (Many) CFU/ML Organism 2 KLEBSIELLA PNEUMONIAE [place] Count >100,000 (Many) CFU/ML 1. ESCHERICHIA COLI M.I.C. RX --------- ------ Ampicillin 4 S Cefazolin <=4 S Cefepime <=1 S Ceftriaxone <=1 S Ciprofloxacin <=0.25 S Gentamicin <=1 S Levofloxacin <=0.12 S Meropenem <=0.25 S Nitrofurantoin <=16 S Tetracycline <=1 S Pipercillin/Tazobactam <=4 S Trimethoprim/Sulfamethoxazole <=20 S Amoxicillin/Clavulanic Acid 4 S Aztreonam <=1 S CONTINUED ON NEXT PAGE DEPARTMENT OF PATHOLOGY, [address] [place] [address] Dustin Bernal M.D. Director [facility] # [id number] Patient: SONY HART [id number] (Continued) Specimen: [id number] Collected: 01/05/18 Received: 01/05/18 (Continued) Procedure Result Reported Site Urine Culture Final (continued) 01/08/18 08 2. KLEBSIELLA PNEUMONIAE M.I.C. RX --------- ------ Ampicillin >=32 R Cefazolin <=4 S Cefepime <=1 S Ceftriaxone <=1 S Ciprofloxacin <=0.25 S Gentamicin <=1 S Levofloxacin <=0.12 S Meropenem <=0.25 S Nitrofurantoin 128 R Tetracycline <=1 S Pipercillin/Tazobactam <=4 S Trimethoprim/Sulfamethoxazole <=20 S Amoxicillin/Clavulanic Acid <=2 S Aztreonam <=1 S Contact the Microbiology Department for any additional antibiotic reporting. * ML - Main Lab . END OF REPORT DEPARTMENT OF PATHOLOGY, [address] [place] [address] Dustin Bernal M.D. Director [facility] # [id number] 2 CALL RESULTS TO [place] [id number] 3 Verbal to [facility] by [id number] at 1536 on 10/13/17. Results read back accurately. 4 Verbal to NEYDA by [id number] at 1423 on 10/11/17. Results read back accurately. 5 Please note the change in INR reference range effective 17. 6 Please note the change in INR reference range effective 17. 7 Please note the change in INR reference range effective 17. 8 Please note the change in INR reference range effective 17. 9 [id number] Please note the change in INR reference range effective 17. 11 [id number] 13 [id number] 14 SEE RESULT BELOW Name: SONY HART : [address]: Jennyfer Angel NP Acct: [id number] Unit: [id number] AGE: 71 Location: [facility] Re01/13/17 SEX: F Status: REG REF SPEC: [id number] TERE: 01/13/17-[address]: Jennyfer Angel NP REQ: [id number] RECD: 01/13/17 STATUS: COMP _ SOURCE: URINE SPDESC: ORDERED: Urine Culture COMMENTS: [id number] Urine Source: Random Procedure Result Reported Site Urine Culture Final 01/15/17- 0751 ML Organism 1 ESCHERICHIA COLI [place] Count >100,000 (Many) CFU/ML 1. ESCHERICHIA COLI M.I.C. RX --------- ------ Ampicillin 8 S Cefazolin <=4 S Cefepime <=1 S Ceftriaxone <=1 S Ciprofloxacin <=0.25 S Gentamicin <=1 S Levofloxacin <=0.12 S Meropenem <=0.25 S Nitrofurantoin <=16 S Tetracycline <=1 S Pipercillin/Tazobactam <=4 S Trimethoprim/Sulfamethoxazole <=20 S Amoxicillin/Clavulanic Acid 4 S Aztreonam <=1 S Contact the Microbiology Department for any additional antibiotic reporting. * ML - MAIN LAB ([facility]) . END OF REPORT * ML=Testing performed at Main Lab DEPARTMENT OF PATHOLOGY, [address] [place] [address] Dustin Bernal M.D. Director [facility] # [id number] 15 [id number] 16 [id number] 17 SEE RESULT BELOW Name: SONY HART : [address]: Jennyfer Angel NP Acct: [id number] Unit: [id number] AGE: 71 Location: [facility] Re11/04/16 SEX: F Status: REG REF SPEC: [id number] TERE: 11/04/16 [facility] DR: Jennyfer Angel NP REQ: [id number] RECD: 11/04/16 STATUS: COMP _ SOURCE: URINE SPDESC: ORDERED: Urine Culture COMMENTS: [id number] Urine Source: Random Procedure Result Reported Site Urine Culture Final 11/06/16- 835 ML Organism 1 ESCHERICHIA COLI [place] Count >100,000 (Many) CFU/ML 1. ESCHERICHIA COLI M.I.C. RX --------- ------ Ampicillin 4 S Cefazolin <=4 S Cefepime <=1 S Ceftriaxone <=1 S Ciprofloxacin <=0.25 S Gentamicin <=1 S Levofloxacin <=0.12 S Meropenem <=0.25 S Nitrofurantoin <=16 S Tetracycline <=1 S Pipercillin/Tazobactam <=4 S Trimethoprim/Sulfamethoxazole <=20 S Amoxicillin/Clavulanic Acid 4 S Aztreonam <=1 S Contact the Microbiology Department for any additional antibiotic reporting. * ML - MAIN LAB ([facility]) . END OF REPORT * ML=Testing performed at Main Lab DEPARTMENT OF PATHOLOGY, [address] [place] [address] Dustin Bernal M.D. Director [facility] # [id number] 18 Therapeutic target for the treatment of diabetes Mellitus patients is <7% HBA1C, and in selective patients <6.0%.Please refer to [place] [employer] Diabetic care guidelines for further information. 19 Desirable <150 Borderline high 150-199 High 200-499 Very High >500 20 Desirable <200 Borderline high 200-239 High >239 21 Low <40 Desirable: 40-60 High: >60 22 Desirable: <100 mg/dL Near Optimal: 100-129 mg/dL Borderline High: 130-159 mg/dL High: 160-189 mg/dL Very High: >189 mg/dL 23 Because ethnic data is not always readily available, this report includes an eGFR for both -Americans and non- Americans. The National Kidney Disease Education Program (NKDEP) does not endorse the use of the MDRD equation for patients that are not between the ages of 18 and 70, are , have extremes of body size, muscle mass, or nutritional status, or are non- or non-. According to the National Kidney Foundation, irrespective of diagnosis, the stage of the disease is based on the level of kidney function: Stage Description GFR(mL/min/1.73 m(2)) 1 Kidney damage with normal or decreased GFR 90 2 Kidney damage with mild decrease in GFR 60-89 3 Moderate decrease in GFR 30-59 4 Severe decrease in GFR 15-29 5 Kidney failure <15 (or dialysis) 24 [facility] Severe Sepsis and Septic Shock Management Bundle Measure requires all lactic acids initially measuring >2.0 mmol/L be repeated. 25 Critical Result LACT:2.3 Called to ODALYS at: 01:35:50 by:[id number] Read back by:ODALYS [facility] Severe Sepsis and Septic Shock Management Bundle Measure requires all lactic acids initially measuring >2.0 mmol/L be repeated. 26 SEE RESULT BELOW Name: SONY HART : [address]: Jethro Hernandez MD Acct: [id number] Unit: [id number] AGE: 71 Location: ED Re09/18/16 SEX: F Status: DEP ER SPEC: [id number] TERE: 09/19/16 [facility] DR: Jethro Hernandez MD REQ: [id number] RECD: 09/19/16 STATUS: JOSE ROBERTO GRIFFIN DR: Jennyfer Angel D[employer] _ SOURCE: BLOOD,VENO SPDESC: ORDERED: Blood Cult Procedure Result Reported Site Aerobic Culture Bottle Final 09/24/16- 352 ML No Growth Day 5 Anaerobic Culture Bottle Final 09/24/16- 352 ML No Growth Day 5 * ML - [facility] - [facility]1) . END OF REPORT * ML=Testing performed at Main Lab DEPARTMENT OF PATHOLOGY, [address] [place] [address] Dustin Bernal M.D. Director [facility] # [id number] 27 SEE RESULT BELOW Name: SONY HART : [address]: Jethro Hernandez MD Acct: [id number] Unit: [id number] AGE: 71 Location: ED Re09/18/16 SEX: F Status: DEP ER SPEC: [id number] TERE: 09/19/16-[address]: Jethro Hernandez MD REQ: [id number] RECD: 09/19/16 STATUS: JOSE ROBERTO [facility] : Jennyfer Angel DOUBLE END TENON OPERATOR _ SOURCE: URINE [facility]: ORDERED: Urine Culture Procedure Result Reported Site Urine Culture Final 09/21/16- 0759 ML Organism 1 ENTEROBACTER CLOACAE [place] Count 10-25,000 (Moderate) CFU/ML 1. ENTEROBACTER CLOACAE M.I.C. RX --------- ------ Cefazolin >=64 R Cefepime <=1 S Ceftriaxone <=1 S Ciprofloxacin <=0.25 S Gentamicin <=1 S Levofloxacin <=0.12 S Meropenem <=0.25 S Nitrofurantoin <=16 S Tetracycline <=1 S Trimethoprim/Sulfamethoxazole <=20 S Amoxicillin/Clavulanic Acid R Aztreonam <=1 S Contact the Microbiology Department for any additional antibiotic reporting. * ML - MAIN LAB ([facility]) . END OF REPORT * ML=Testing performed at Main Lab DEPARTMENT OF PATHOLOGY, [address] [place] [address] Dustin Bernal M.D. Director [facility] # [id number] 28 [id number] 29 [id number] 30 [id number] 31 [id number] 32 [id number] 33 [id number] 34 [id number] 35 [id number] 36 [id number] 37 [id number] 38 [id number] 39 [id number] 40 [id number] 41 [id number] 42 [id number] 43 [id number] 44 [id number] 45 [id number] 46 [id number] 47 [id number] 48 [id number] 49 [id number] 50 [id number] 51 CMC [id number] 52 [id number] 53 [id number] 54 CMC 62563 55 Verbal to SHADE SIDDIQI by [id number] at 1545 on 12/16/15. Results read back accurately. Procedures Date CPT Code Description Status Comment 04/18/2018 36575 Anticoagulant MGMT For Patient Taking Warfarin, Completed Inc Review & Intr 04/04/2018 38558 Anticoagulant MGMT For Patient Taking Warfarin, Completed Inc Review & Intr 03/21/2018 12689 Anticoagulant MGMT For Patient Taking Warfarin, Completed Inc Review & Intr 03/15/2018 76100 Anticoagulant MGMT For Patient Taking Warfarin, Completed Inc Review & Intr 03/07/2018 17624 Anticoagulant MGMT For Patient Taking Warfarin, Completed Inc Review & Intr 03/02/2018 49025 Anticoagulant MGMT For Patient Taking Warfarin, Completed Inc Review & Intr 12/16/2015 81049 Nebulizer Treatment Completed 12/14/2015 03047 Nebulizer Treatment Completed 12/07/2015 80427 Nebulizer Treatment Completed 01/04/2013 Mammogram Completed NORMAL 08/28/1998 Bone Mineral Density Test Completed Encounters Type Date Location Provider CPT E/M Dx Office Visit 04/02/2018 3:00p [place] [address] R23.8 M79.601 Z23 Office Visit 02/02/2018 4:30p [place] [address] I69.852 Office Visit 01/05/2018 4:00p [place] [address] N39.0 Office Visit 06/01/2017 4:00p [place] [address] H81.01 Z23 Office Visit 02/20/2017 1:30p Main Office Jennyfer Angel PARIMUTUEL CLERK-C 80463 Z00.00 Z12.31 Office Visit 01/12/2017 3:45p Main Office Fernando Mcdonnell PARIMUTUEL CLERK-C 67623 N95.0 I69.852 Office Visit 11/04/2016 11:45a Main Office Jennyfer Angel PARIMUTUEL CLERK-C 12675 N39.0 Office Visit 10/10/2016 11:45a Main Office Jennyfer Cartagenakelvey PARIMUTUEL CLERK-C 28933 R10.9 Office Visit 09/30/2016 10:30a Main Office Jennyfer Cartagenakelvey PARIMUTUEL CLERK-C 37151 N85.2 E78.2 Office Visit 01/15/2016 11:00a Main Office Jennyfer Cartagenakelvey PARIMUTUEL CLERK-C 32775 I69.852 Z23 Office Visit 12/16/2015 4:15p Main Office Jennyfer Angel PARIMUTUEL CLERK-C 09110 J18.9 Office Visit 12/14/2015 4:00p Main Office Jennyfer Angel PARIMUTUEL CLERK-C 15937 J18.9 Office Visit 12/07/2015 11:45a Main Office Jennyfer Angel PARIMUTUEL CLERK-C 65101 J20.9 R31.9 Office Visit 11/10/2015 9:30a Main Office Jennyfer Cartagenamahamed PARIMUTUEL CLERK-C 34009 Z51.81 I69.852 M62.3 Plan of Care Future Appointment(s):04/26/2018 2:00 pm - Saba Crawley M.D. at Main Dohflx4304/23/2018 - Saba Crawley M.D.L03.116 Cellulitis of left lower limbNew Medication:Silver Sulfadiazine 1 %Cephalexin 500 mgComments:SOUNDS LIKE HAD SKIN TEAR THAT WAS SHOWING SIGNS OF HEALING A FEW WEEKS AGO BUT NOW LOOKS TO HAVE NECROTIC AREA WITHOUT A LOT OF GRANULATION TISSUE SEEN. WILL GET WOUND CLINIC EVAL AND HOME HEALTH NURSE TO DO WOUND CARE. IN MEANTIME, WILL COVER WITH TOPICAL AND ORAL ABX. SILVADENE APPLIED AND DRESSINGAS ABOVE, TO TAKE CEPHALEXIN 500 MG QID (AT LEAST TID) FOR 7 DAYS. DOES NOT LIKE YOGURT- SHE WILL TAKE PROBIOTIC. TO ELEVATE LEFT LEG. DIFFICULT TO PALPATE DP DUE TO EDEMA BUT GOOD CAP REFILL. WILL GET WOUND CLINIC CONSULT, MAY NEED DEBRIDEMENT. TO NOTIFY IF WORSENING, FEVER. RED STREAKS, ETC. PT AGREES. PT LIVES IN OWN APARTMENT AT SON'S FAMILY'S HOUSE. THEY ARE TEACHERS BUT CAN HELP HER IF NEEDED.TO F/U MONDAY (3 DAYS) FOR REEVALUATION UNLESS HOME HEALTH NURSE ABLE TO SEE HER BY THEN.Follow up:. -- WOUND CLINIC CONSULT NEGIN FOR PERSISTENT WOUND LEFT LOWER LEG X 4 WEEKS, CELLULITIS -- ADD ON TO MY SCHEDULE MONDAY AT 2 PM RECHECK WOUNDRecommendations:-- USE THE SILVADENE SULFA ANTIBIOTIC CREAM TO YOUR LEFT LEG WOUND ONCE DAILY AND CHANGE DRESSING --KEEP LEFT LEG ELEVATED MUCH POSSIBLE -- TAKE THE CEPHALEXIN ANTIBIOTIC 500 MG FOUR TIMES PER DAY FOR 1 WEEK -- FOLLOW-UP MONDAY FOR EVALUATION -- WE WILL HAVE HOME HEALTH NURSE EVALUATE YOU ANDALSO GET YOU INTO THE WOUND CLINIC -- NOTIFY RIGHT AWAY IF WORSENING, FEVER, REDNESS SPREADING OR RED STREAKS -- TAKE PROBIOTIC, SUCH ALIGN OR CULTURELLE, WHILE ON THE ANTIBIOTICS
--- OUTSIDE RECORDS SUMMARY | 2018-04-24 06:37 | XMS REPORT ---
:1945 External Reference #:[id number] Author Organization [facility] Address [address] [place] [address] Phone [phone] Care Team Providers Name Role Phone Matt Houser MD Care Team Information Service Assistant Unavailable Payers Type Date Identification Numbers Payment Provider Subscriber Commercial Policy Number: [id number] [employer] Number: [id number] [address] [address] PayID: [id number] [place] [id number] Problems Description No Information Family History Date [...] Form Strength Qnty SIG Indications Ordering Provider Wheelchair (Not 01/10 Active 1unit as Matt Power) /2017 s directed; Mik garcia MD additional letter. Pride Q6edge Power 03/15 Active 1unit pritsering Matt Wheelchair s q6edge HeetInfolinks power wc, , w/height adjustable armrests and 1 pair of batteries Warfarin Sodium 12/15 Active Tablets 1mg 30tab Take One Jessica s Tablet By Shortle, Mouth Every HOME ECONOMIST Day Or as Directed Folic Acid 11/15 Active Tablets 1mg 90tab 1 by mouth s every day JEANIE Angel Calcium 1200 11/15 Active Chewtabs 6942-9533 mg-Unit JEANIE Angel Fish Oil 11/15 Active Capsules 1200mg 1 tab po JEANIE Albarado Vitamin D3 11/15 Active Capsules 1000Unit JEANIE Angel Vitamin B-12 11/15 Active Tablets 500mcg Sub JEANIE Angel Fenofibrate 11/15 Active Tablets 160mg 90tab Take One Jennyfer s Tablet By Sridhar Angel Every CARBON FURNACE OPERATOR HELPER-C Day With Food Allopurinol 11/15 Active Tablets 300mg 90tab Take One Jessica /2016 s Tablet By Shortle, Mouth Every HOME ECONOMIST Day Warfarin Sodium 11/15 Active Tablets 4mg 90tab Take Three Jessica s Tablets By Shortle, Mouth Every HOME ECONOMIST Day Or as Directed Warfarin Sodium 11/15 Active Tablets 2mg 30tab Take One Jessica /2016 s Tablet By Shortle, Mouth Every HOME ECONOMIST Day Or as Directed Paxil 11/15 Active Tablets 20mg 60tab Take One Jessica s Tablet By Shortle, Mouth Every HOME ECONOMIST Day Atorvastatin 11/15 Active Tablets 40mg 30tab Take One Jessica Calcium s Tablet By Shortle, Mouth Every HOME ECONOMIST Day Metoprolol 11/15 Active Tablets 25mg 60tab Take One Jessica Tartrate s Tablet By Shortle, Mouth Twice HOME ECONOMIST A Day Cephalexin 01/08 Hx Capsules 500mg 9caps take one capsule Mik - three times , 04/09 a day for days. Bactrim DS 01/05 Hx Tablets 800-160mg 10tab take 1 Matt s tablet by Mik - mouth every , 04/09 12 hours /2017 for 5 days Meclizine HCL 06/01 Hx Tablets 25mg 30tab take by H81.01 Matt s mouth 1/2 [place] - to 1 tablet , 06/01 3 times per day for sensation of motion Hydrochlorothiazid 06/01 Hx Tablets 12.5mg 30tab 1 tab by H81.01 Matt s mouth every [place] - MD aaliyah 06/01 Macrobid 11/04 Hx Capsules 100mg 20cap 1 tab by N39.0 Jennyfer s mouth twice Bernie, - a day x10 [employer] F[employer]NACE OPERATOR HELPER-C Lactulose 10/15 Hx Solution 10GM/15ML 500ml 1 tbs by Fernando mouth twice Asya Mcdonnell, - a day until [employer] FURNACE OPERATOR HELPER-C 11/04 movements occur Macrobid 10/10 Hx Capsules 100mg 14cap 1 tab by R10.9 Jennyfer s mouth twice Bernie, - a day x7 [employer]ON FURNACE OPERATOR HELPER-C Doxycycline 12/13 Hx Capsules 100mg 20cap 1 tab by J18.9 Jennyfer Hyclate s mouth twice Bernie, - a day x 10 CARBON FURNACE OPERATOR HELPER-C Cephalexin 12/06 Hx Tablets 500mg 21tab take 1 J20.9 s tablet by Bernie, - mouth three CARBON FURNACE OPERATOR HELPER-C 09/30 times a day x 7 days Ventolin HFA 12/06 Hx Aerosol 108(90Bas 1unit 2 puffs J20.9 e) s every every Bernie, - mcg/Act 4-6 hours CARBON FURNACE OPERATOR HELPER-C 02/20 as needed /2016 wheezing/ti ghtness Digoxin 11/15 Hx Tablets 125mcg 90tab 1 by mouth s every day Bernie, - CARBON FURNACE OPERATOR HELPER-C 09/30 Cranberry 11/15 Hx Capsules 400mg 2400 mg daily Bernie, - CARBON FURNACE OPERATOR HELPER-C 11/04 Nitrofurantoin 00 Hx Capsules 100mg Bapana, Monohydrate/Macroc /0000 Jethro Stubbs MD 09/23 Immunizations CPT Code Status Date Vaccine Lot # [id number] Given 04/02/2018 Tdap (Adacel) [id number] 58736 Given 06/01/2017 Influenza Vaccine High Dose PF [id number] 05673 Given 06/21/2016 Influenza Virus Vaccine, Quadrivalent, 3 Yr > Quad, Preserv Free 43875 Given 01/15/2016 Prevnar-13 Pneumococcal Conjugate Vaccine [id number] 28850 Given 03/31/2013 Tdap (Adacel) 75749 Given 03/31/2013 Td Age 7 to adult (Tenivac, Decavac, [employer]) 11502 Given 01/27/2008 Pneumovax 23 (PPSV23) 65+ years or high risk 2 to 64 year old Vital Signs Date Vital Result Comment 04/09/2018 BP Systolic 110 mmHg BP Diastolic [...] 5-6 Urine Blood 250 High Neg Specific [place] 1.015 1.01-1.02 Urine Ketones neg Neg Urine [...] 5-6 Urine Blood 250 High Neg Specific [place] 1.010 1.01-1.02 Urine Ketones neg Neg Urine [...] 5 5-6 Urine Blood TRACE Neg Specific [place] 1.010 1.01-1.02 Urine Ketones NEG Neg Urine [...] Color Yellow Urine Appearance Cloudy Urine Specific [place] 1.021 1.010-1.030 Urine pH 5.0 5-9 Urine [...] 5 5-6 Urine Blood ++ Neg Specific [place] 1.020 1.01-1.02 Urine Ketones NEG Neg Urine Bilirubin NEG Neg Urine Glucose NORM Norm Inr/Protime 12/02/2015 Inr 2.31 High 0.89-1.11 Laboratory test finding 11/25/2015 Inr 1.97 High 0.89-1.11 Laboratory test finding 11/18/2015 Inr 3.67 High 0.89-1.11 1 SEE RESULT BELOW Name: DARRINDWAYNESandySONY : [address]: Matt Houser MD Acct: [id number] Unit: [id number] AGE: 72 Location: [facility] Re01/05/18 SEX: F Status: REG REF SPEC: [id number] TERE: 01/05/18-[address]: Matt Houser MD REQ: [id number] RECD: 01/05/18156 STATUS: COMP _ SOURCE: URINE SPDESC: ORDERED: Urine Culture COMMENTS: [id number] Procedure Result Reported Site Urine Culture Final 01/08/18- 818 ML Organism 1 ESCHERICHIA COLI [place] Count >100,000 (Many) CFU/ML Organism 2 KLEBSIELLA PNEUMONIAE [place] Count >100,000 (Many) CFU/ML 1. ESCHERICHIA COLI M.I.C. RX --------- ------ Ampicillin 4 S Cefazolin <=4 S Cefepime <=1 S Ceftriaxone <=1 S Ciprofloxacin <=0.25 S Gentamicin <=1 S Levofloxacin <=0.12 S Meropenem <=0.25 S Nitrofurantoin <=16 S Tetracycline <=1 S Pipercillin/Tazobactam <=4 S Trimethoprim/Sulfamethoxazole <=20 S Amoxicillin/Clavulanic Acid 4 S Aztreonam <=1 S CONTINUED ON NEXT PAGE DEPARTMENT OF PATHOLOGY, [address] [place] [address] Dustin Bernal M.D. Director [facility] # [id number] Patient: SONY HART [id number] (Continued) Specimen: [id number] Collected: 01/05/18 Received: 01/05/18 (Continued) Procedure Result Reported Site Urine Culture Final (continued) 01/08/18818 2. KLEBSIELLA PNEUMONIAE M.I.C. RX --------- ------ Ampicillin >=32 R Cefazolin <=4 S Cefepime <=1 S Ceftriaxone <=1 S Ciprofloxacin <=0.25 S Gentamicin <=1 S Levofloxacin <=0.12 S Meropenem <=0.25 S Nitrofurantoin 128 R Tetracycline <=1 S Pipercillin/Tazobactam <=4 S Trimethoprim/Sulfamethoxazole <=20 S Amoxicillin/Clavulanic Acid <=2 S Aztreonam <=1 S Contact the Microbiology Department for any additional antibiotic reporting. * - Main Lab . END OF REPORT DEPARTMENT OF PATHOLOGY, [address] [place] [address] Dustin Bernal M.D. Director [facility] # [id number] 2 CALL RESULTS TO TARAH [id number] Verbal to TARAH/[facility] by [id number] at 1536 on 10/13/17. Results read back accurately. 4 Verbal to NEYDA by [id number] at 1423 on 10/11/17. Results read back accurately. 5 Please note the change in INR reference range effective 17. 6 Please note the change in INR reference range effective 17. 7 Please note the change in INR reference range effective 17. 8 Please note the change in INR reference range effective 17. 9 [id number] Please note the change in INR reference range effective 17. 11 [id number] 12 [id number] 13 [id number] 14 SEE RESULT BELOW Name: SONY HART : [address]: Jennyfer Angel NP Acct: [id number] Unit: [id number] AGE: 71 Location: [facility] Re01/13/17 SEX: F Status: REG REF SPEC: [id number] TERE: 01/13/17-12[address] [facility] DR: Jennyfer Angel NP REQ: [id number] RECD: 01/13/17 STATUS: COMP _ SOURCE: URINE SPDESC: ORDERED: Urine Culture COMMENTS: [id number] Urine Source: Random Procedure Result Reported Site Urine Culture Final 01/15/17- 0751 ML Organism 1 ESCHERICHIA COLI [place] Count >100,000 (Many) CFU/ML 1. ESCHERICHIA COLI [...] antibiotic reporting. * ML - MAIN LAB ([facility]) . END OF REPORT * ML=Testing performed at Main Lab DEPARTMENT OF PATHOLOGY, [address] [place] [address] Dustin Bernal M.D. Director [facility] # [id number] 15 [id number] 16 [id number] 17 SEE RESULT BELOW Name: VIKI HARTNAVEEN [place] : [address]: Jennyfer Angel NP Acct: [id number] Unit: [id number] AGE: 71 Location: [facility] Re11/04/16 SEX: F Status: REG REF SPEC: [id number] TERE: 11/04/16-[address]: Jennyfer Angel NP REQ: [id number] RECD: 11/04/16 STATUS: COMP _ SOURCE: URINE SPDESC: ORDERED: Urine Culture COMMENTS: [id number] Urine Source: Random Procedure Result Reported Site Urine Culture Final 11/06/16- 835 ML Organism 1 ESCHERICHIA COLI [place] Count >100,000 (Many) CFU/ML 1. ESCHERICHIA COLI [...] antibiotic reporting. * ML - MAIN LAB ([facility]) . END OF REPORT * ML=Testing performed at Main Lab DEPARTMENT OF PATHOLOGY, [address] [place] [address] Dustin Bernal M.D. Director [facility] # [id number] 18 Therapeutic target for the treatment of diabetes Mellitus patients is <7% HBA1C, and in selective patients <6.0%.Please refer to [place] [employer] Diabetic care guidelines for further [...] 5 Kidney failure <15 (or dialysis) 24 [facility] Severe Sepsis and Septic Shock Management Bundle Measure requires all lactic acids initially measuring >2.0 mmol/L be repeated. 25 Critical Result LACT:2.3 Called to [id number] at: 01:35:50 by:[id number] Read back by:[id number] [facility] Severe Sepsis and Septic Shock Management Bundle Measure requires all lactic acids initially measuring >2.0 mmol/L be repeated. 26 SEE RESULT BELOW Name: SONY HART : [address]: Jethro Hernandez MD Acct: [id number] Unit: [id number] AGE: 71 Location: ED Re09/18/16 SEX: F Status: DEP ER SPEC: [id number] TERE: 09/19/[address]: Jethro Hernandez MD REQ: [id number] RECD: 09/19/16 STATUS: JOSE ROBERTO GRIFFIN DR: Jennyfer Angel HOME ECONOMIST _ SOURCE: BLOOD,VENO SPDESC: ORDERED: Blood Cult Procedure Result Reported Site Aerobic Culture Bottle Final 09/24/16- 352 ML No Growth Day 5 Anaerobic Culture Bottle Final 09/24/16- 352 ML No Growth Day 5 * ML - MAIN LAB ([facility]) . END OF REPORT * ML=Testing performed at Main Lab DEPARTMENT OF PATHOLOGY, [address] [place] [address] Dustin Bernal M.D. Director [facility] # [id number] 27 SEE RESULT BELOW Name: SONY HART : [address]: Jethro Hernandez MD Acct: [id number] Unit: [id number] AGE: 71 Location: ED Re09/18/16 SEX: F Status: DEP ER SPEC: [id number] TERE: 09/19/[address] [facility] [address]: Jethro Hernandez MD REQ: [id number] RECD: 09/19/16 STATUS: JOSE ROBERTO GRIFFIN DR: Jennyfer Angel HOME ECONOMIST _ SOURCE: URINE SPDESC: ORDERED: Urine Culture Procedure Result Reported Site Urine Culture Final 09/21/16- 0759 ML Organism 1 ENTEROBACTER CLOACAE [place] Count 10-25,000 (Moderate) CFU/ML 1. ENTEROBACTER CLOACAE M.I.C. RX --------- ------ Cefazolin >=64 R Cefepime <=1 S Ceftriaxone <=1 S Ciprofloxacin <=0.25 S Gentamicin <=1 S Levofloxacin <=0.12 S Meropenem <=0.25 S Nitrofurantoin <=16 S Tetracycline <=1 S Trimethoprim/Sulfamethoxazole <=20 S Amoxicillin/Clavulanic Acid R Aztreonam <=1 S Contact the Microbiology Department for any additional antibiotic reporting. * ML - MAIN LAB ([facility]) . END OF REPORT * ML=Testing performed at Main Lab DEPARTMENT OF PATHOLOGY, [address] [place] [address] Dustin Bernal M.D. Director [facility] # [id number] 28 [id number] 29 [id number] 30 [id number] 31 [id number] 32 [id number] 33 [id number] 34 [id number] 35 [id number] 36 [id number] 37 [id number] 38 [id number] 39 [id number] 40 [id number] 41 [id number] 42 [id number] 43 [id number] 44 [id number] 45 [id number] 46 [id number] 47 [id number] 48 [id number] 49 [id number] 50 [id number] 51 [facility] [id number] 52 [id number] 53 [id number] 54 [facility] [id number] 55 Verbal to SHADE SIDDIQI by [id number] at 1545 on 12/16/15. Results read back accurately. Procedures Date CPT Code Description Status Comment 04/18/2018 29336 Anticoagulant MGMT For Patient Taking Warfarin, Completed Inc Review & Intr 04/04/2018 11726 Anticoagulant MGMT For Patient Taking Warfarin, Completed Inc Review & Intr 03/21/2018 96779 Anticoagulant MGMT For Patient Taking Warfarin, Completed Inc Review & Intr 03/15/2018 73256 Anticoagulant MGMT For Patient Taking Warfarin, Completed Inc Review & Intr 03/07/2018 89207 Anticoagulant MGMT For Patient Taking Warfarin, Completed Inc Review & Intr 03/02/2018 83948 Anticoagulant MGMT For Patient Taking Warfarin, Completed Inc Review & Intr 12/16/2015 43962 Nebulizer Treatment Completed 12/14/2015 21395 Nebulizer Treatment Completed 12/07/2015 36195 Nebulizer Treatment Completed 01/04/2013 Mammogram Completed NORMAL 08/28/1998 Bone Mineral Density Test Completed Encounters Type Date Location Provider CPT E/M Dx Office Visit 04/02/2018 3:00p [place] [address] R23.8 M79.601 Z23 Office Visit 02/02/2018 4:30p [place] [address] I69.852 Office Visit 01/05/2018 4:00p [place] [address] N39.0 Office Visit 06/01/2017 4:00p [place] [address] H81.01 Z23 Office Visit 02/20/2017 1:30p Main Office JEANIE Lee 09610 Z00.00 Z12.31 Office Visit 01/12/2017 3:45p Main Office JEANIE Woods 37095 N95.0 I69.852 Office Visit 11/04/2016 11:45a Main Office Jennyfer Angel CAR[employer] FURNACE OPERATOR HELPER-C 17500 N39.0 Office Visit 10/10/2016 11:45a Main Office Jennyfer Angel CARBON FURNACE OPERATOR HELPER-C 74963 R10.9 Office Visit 09/30/2016 10:30a Main Office Jennyfer Angel CARBON FURNACE OPERATOR HELPER-C 84836 N85.2 E78.2 Office Visit 01/15/2016 11:00a Main Office Jennyfer Cartagenakelvey CARBON FURNACE OPERATOR HELPER-C 04871 I69.852 Z23 Office Visit 12/16/2015 4:15p Main Office Jennyfer Cartagenakelvey CARBON FURNACE OPERATOR HELPER-C 72169 J18.9 Office Visit 12/14/2015 4:00p Main Office Jennyfer Angel [employer] FURNACE OPERATOR HELPER-C 53181 J18.9 Office Visit 12/07/2015 11:45a Main Office Jennyfer Cartagenakelvey CARBON FURNACE OPERATOR HELPER-C 70299 J20.9 R31.9 Office Visit 11/10/2015 9:30a Main Office Jennyfer Cartagenamahamed CARB[employer] FURNACE OPERATOR HELPER-C 02562 Z51.81 I69.852 M62.3 Plan of Care 04/09/2018 - Jessica Guajardo, NPR23.8 Other skin changesComments:No acute concerns today.I suspected maceration of skin is due to constant moisture from bandageWe will change bandage to ABD pads to wick away moisturePatient will also leave it open to air when she canEducated on new/worsening symptoms and when to call/return. Patient stated understanding and agrees to plan
--- OUTSIDE RECORDS SUMMARY | 2018-04-24 06:37 | XMS REPORT ---
:1945 External Reference #:[id number] Author Organization [facility] Address [address] [place] [address] Phone [phone] Care Team Providers Name Role Phone Matt Houser MD Care Team Information Online Community Manager Unavailable Payers Type Date Identification Numbers Payment Provider Subscriber Commercial Policy Number: [id number] [employer] Number: [id number] [address] [address] PayID: [id number] [place] [address] Problems Description No Information Family History Date [...] s directed; Mik garcia MD additional letter. Cephalexin 05/14 Active Capsules 500mg 9caps take one Matt /2018 capsule Mik three times , MD a day for 3 days. Bactrim DS 01/05 Active Tablets 800-160mg 10tab take 1 Matt s tablet by Mik mouth every , MD 12 hours for 5 days Pride Q6edge Power 03/15 Active 1unit pride Matt Wheel s q6edge [place] power wc, , MD w/height adjustable armrests and 1 pair of batteries Warfarin Sodium 12/15 Active Tablets 1mg 30tab Take One s Tablet By Shortle, Mouth Every [employer] Day Or as Directed Folic Acid 11/15 Active Tablets 1mg 90tab 1 by mouth s every day JEANIE Angel Calcium 1200 11/15 Active Chewtabs 2564-3726 mg-Unit JEANIE Angel Fish Oil 11/15 Active Capsules 1200mg 1 tab po JEANIE Albarado Vitamin D3 11/15 Active Capsules 1000Unit JEANIE Angel Vitamin B-12 11/15 Active Tablets 500mcg Sub JEANIE Angel Fenofibrate 11/15 Active Tablets 160mg 90tab Take One s Tablet By Sridhar Angel Every [employer]CH[employer]IC-C Day With Food Allopurinol 11/15 Active Tablets 300mg 90tab Take One s Tablet By Shortle, Mouth Every [employer] Day Warfarin Sodium 11/15 Active Tablets 4mg 90tab Take Three s Tablets By Shortle, Mouth Every [employer] Day Or as Directed Warfarin Sodium 11/15 Active Tablets 2mg 30tab Take One s Tablet By Shortle, Mouth Every [employer] Day Or as Directed Paxil 11/15 Active Tablets 20mg 60tab Take One Jessica s Tablet By Shortle, Mouth Every [employer] Day Atorvastatin 11/15 Active Tablets 40mg 30tab Take One Jessica Calcium s Tablet By Shortle, Mouth Every [employer] Day Metoprolol 11/15 Active Tablets 25mg 60tab Take One Jessica Tartrate s Tablet By Shortle, Mouth Twice [employer] A Day Meclizine HCL 06/01 Hx Tablets 25mg 30tab [...] mouth twice Bernie, - a day x10 [employer]-C Lactulose 10/15 Hx Solution 10GM/15ML 500ml 1 tbs by Fernando mouth twice Asya Mcdonnell, - a day until IND[employer]CH[employer]IC-C 11/04 movements occur Macrobid 10/10 Hx Capsules 100mg 14cap 1 tab by R10.9 Jennyfer s mouth twice Bernie, - a day x7 [employer]IC-C Doxycycline 12/13 Hx Capsules 100mg 20cap 1 tab by J18.9 Jennyfer Hycl s mouth twice Bernie, - a day x 10 [employer]IC-C Cephalexin 12/06 Hx Tablets 500mg 21tab take 1 J20.9 s tablet by Bernie, - mouth three 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 times a day x 7 days Ventolin HFA 12/06 Hx Aerosol 108(90Bas 1unit 2 puffs J20.9 e) s every every Bernie, - mcg/Act 4-6 hours [employer] MECH[employer]IC-C 02/20 as needed /2016 wheezing/ti ghtness Digoxin 11/15 Hx Tablets 125mcg 90tab 1 by mouth s every day 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, - 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 Cranberry 11/15 Hx Capsules 400mg 2400 mg daily Bernie, - IND[employer]RI[employer]ER[employer] MECH[employer]IC-C 11/04 Nitrofurantoin 00 Hx Capsules 100mg Bapana, Monohydrate/Macroc /0000 Jethro Stubbs MD 09/23 Immunizations CPT Code Status Date Vaccine Lot # [id number] Given 04/02/2018 Tdap (Adacel) [id number] 26766 Given 06/01/2017 Influenza Vaccine High Dose PF [id number] 10601 Given 06/21/2016 Influenza Virus Vaccine, Quadrivalent, 3 Yr > Quad, Preserv Free 09671 Given 01/15/2016 Prevnar-13 Pneumococcal Conjugate Vaccine [id number] 85682 Given 03/31/2013 Tdap (Adacel) 94423 Given 03/31/2013 Td Age 7 to adult (Tenivac, Decavac, [employer]) 87755 Given 01/27/2008 Pneumovax 23 (PPSV23) 65+ years or high risk 2 to 64 year old Vital Signs Date Vital Result Comment 04/02/2018 BP Systolic 98 mmHg BP Diastolic [...] Date Test Result H/L Range Note Inr/Protime 03/21/2018 Inr 3.22 High 0.77-1.02 Inr/Protime [...] 5-6 Urine Blood 250 High Neg Specific [place] 1.015 1.01-1.02 Urine Ketones neg Neg Urine [...] 5-6 Urine Blood 250 High Neg Specific [place] 1.010 1.01-1.02 Urine Ketones neg Neg Urine [...] 5 5-6 Urine Blood TRACE Neg Specific [place] 1.010 1.01-1.02 Urine Ketones NEG Neg Urine [...] Color Yellow Urine Appearance Cloudy Urine Specific [place] 1.021 1.010-1.030 Urine pH 5.0 5-9 Urine [...] 5 5-6 Urine Blood ++ Neg Specific [place] 1.020 1.01-1.02 Urine Ketones NEG Neg Urine Bilirubin NEG Neg Urine Glucose NORM Norm Inr/Protime 12/02/2015 Inr 2.31 High 0.89-1.11 Laboratory test finding 11/25/2015 Inr 1.97 High 0.89-1.11 Laboratory test finding 11/18/2015 Inr 3.67 High 0.89-1.11 1 SEE RESULT BELOW Name: HAILEYSONY Camron : [address]: Matt Houser MD Acct: [id number] Unit: [id number] AGE: 72 Location: [facility] Re01/05/18 SEX: F Status: REG REF SPEC: [id number] TERE: 01/05/18-170 [facility] DR: Matt Houser MD REQ: [id number] RECD: 01/05/18 STATUS: COMP _ SOURCE: URINE SPDESC: ORDERED: Urine Culture COMMENTS: [id number] Procedure Result Reported Site Urine Culture Final 01/08/18- 0819 ML Organism 1 ESCHERICHIA COLI [place] Count >100,000 (Many) CFU/ML Organism 2 KLEBSIELLA PNEUMONIAE [place] Count >100,000 (Many) CFU/ML 1. ESCHERICHIA COLI [facility].I.C. RX --------- ------ Ampicillin 4 S Cefazolin <=4 S Cefepime <=1 S Ceftriaxone <=1 S Ciprofloxacin <=0.25 S Gentamicin <=1 S Levofloxacin <=0.12 S Meropenem <=0.25 S Nitrofurantoin <=16 S Tetracycline <=1 S Pipercillin/Tazobactam <=4 S Trimethoprim/Sulfamethoxazole <=20 S Amoxicillin/Clavulanic Acid 4 S Aztreonam <=1 S CONTINUED ON NEXT PAGE DEPARTMENT OF PATHOLOGY, [address] [place] [address] Dustin Bernal M.D. Director [facility] # [id number] Patient: SONY HART [id number] (Continued) Specimen: [id number] Collected: 01/05/18 Received: 01/05/18 (Continued) Procedure Result [...] . END OF REPORT DEPARTMENT OF PATHOLOGY, [address] [place] [address] Dustin Bernal M.D. Director [facility] # [id number] 2 CALL RESULTS TO TARAH [id number] 3 Verbal to TARAH/[facility] by [id number] at 1536 on 10/13/17. Results read back accurately. 4 Verbal to NEYDA by [id number] at 1423 on 10/11/17. Results read back accurately. 5 Please note the change in INR reference range effective 17. 6 Please note the change in INR reference range effective 17. 7 Please note the change in INR reference range effective 17. 8 Please note the change in INR reference range effective 17. 9 [id number] Please note the change in INR reference range effective 17. 11 [id number] 12 [id number] 13 [id number] 14 SEE RESULT BELOW Name: SONY HART Camron : [address]: Jennyfer Angel NP Acct: [id number] Unit: [id number] AGE: 71 Location: [facility] Re01/13/17 SEX: F Status: REG REF SPEC: [id number] TERE: 01/13/17-[address]: Jennyfer Angel NP REQ: [id number] RECD: 01/13/17 STATUS: COMP _ SOURCE: URINE [facility]: ORDERED: Urine Culture COMMENTS: [id number] Urine Source: Random Procedure Result Reported Site Urine Culture Final 01/15/17- 0751 ML Organism 1 ESCHERICHIA COLI [place] Count >100,000 (Many) CFU/ML 1. ESCHERICHIA COLI [...] antibiotic reporting. * ML - MAIN LAB ([facility]) . END OF REPORT * ML=Testing performed at Main Lab DEPARTMENT OF PATHOLOGY, [address] [place] [address] Dustin Bernal M.D. Director [facility] # [id number] 15 [id number] 16 [id number] 17 SEE RESULT BELOW Name: SONY HART : [address]: Jennyfer Angel NP Acct: [id number] Unit: [id number] AGE: 71 Location: [facility] Re11/04/16 SEX: F Status: REG REF SPEC: [id number] TERE: 11/04/16-13[address] [facility] [address]: Jennyfer Angel NP REQ: [id number] RECD: 11/04/16 STATUS: COMP _ SOURCE: URINE SPDESC: ORDERED: Urine Culture COMMENTS: [id number] Urine Source: Random Procedure Result Reported Site Urine Culture Final 11/06/16- 0836 ML Organism 1 ESCHERICHIA COLI [place] Count >100,000 (Many) CFU/ML 1. ESCHERICHIA COLI [...] antibiotic reporting. * ML - MAIN LAB ([facility]) . END OF REPORT * ML=Testing performed at Main Lab DEPARTMENT OF PATHOLOGY, [address] [place] [address] Dustin Bernal M.D. Director [facility] # [id number] 18 Therapeutic target for the treatment of diabetes Mellitus patients is <7% HBA1C, and in selective patients <6.0%.Please refer to [place] [employer] Diabetic care guidelines for further [...] 5 Kidney failure <15 (or dialysis) 24 [facility] Severe Sepsis and Septic Shock Management Bundle Measure requires all lactic acids initially measuring >2.0 mmol/L be repeated. 25 Critical Result LACT:2.3 Called to [id number] at: 01:35:50 by:[id number] Read back by:[address] Severe Sepsis and Septic Shock Management Bundle Measure requires all lactic acids initially measuring >2.0 mmol/L be repeated. 26 SEE RESULT BELOW Name: SONY HART Camron : [address]: Jethro Hernandez MD Acct: [id number] Unit: [id number] AGE: 71 Location: ED Re09/18/16 SEX: F Status: DEP ER SPEC: [id number] TERE: 09/19/16 [facility] DR: Jethro Hernandez MD REQ: [id number] RECD: 09/19/16 STATUS: JOSE ROBERTO GRIFFIN DR: Jennyfer Angel [employer] _ SOURCE: [facility]LOOD[facility]: ORDERED: Blood Cult Procedure Result Reported Site Aerobic Culture Bottle Final 09/24/16352 ML No Growth Day 5 Anaerobic Culture Bottle Final 09/24/16352 ML No Growth Day 5 * ML - MAIN LAB ([facility]) . END OF REPORT * ML=Testing performed at Main Lab DEPARTMENT OF PATHOLOGY, [address] [place] [address] Dustin Bernla M.D. Director [facility] # [id number] 27 SEE RESULT BELOW Name: HAILEYVIKISONY Camron : [address]: Jethro Hernandez MD Acct: [id number] Unit: [id number] AGE: 71 Location: ED Re09/18/16 SEX: F Status: DEP ER SPEC: [id number] TERE: 09/19/16 [facility] [address]: Jethro Hernandez MD REQ: [id number] RECD: 09/19/16 STATUS: JOSE ROBERTO GRIFFIN DR: Jennyfer Angel [employer] _ SOURCE: URINE SPDESC: ORDERED: Urine Culture Procedure Result Reported Site Urine Culture Final 09/21/16- 0759 ML Organism 1 ENTEROBACTER CLOACAE [place] Count 10-25,000 (Moderate) CFU/ML 1. ENTEROBACTER CLOACAE M.I.C. RX --------- ------ Cefazolin >=64 R Cefepime <=1 S Ceftriaxone <=1 S Ciprofloxacin <=0.25 S Gentamicin <=1 S Levofloxacin <=0.12 S Meropenem <=0.25 S Nitrofurantoin <=16 S Tetracycline <=1 S Trimethoprim/Sulfamethoxazole <=20 S Amoxicillin/Clavulanic Acid R Aztreonam <=1 S Contact the Microbiology Department for any additional antibiotic reporting. * ML - MAIN LAB ([facility]) . END OF REPORT * ML=Testing performed at Main Lab DEPARTMENT OF PATHOLOGY, [address] [place] [address] Dustin Bernal M.D. Director [facility] # [id number] 28 [id number] 29 [id number] 30 [id number] 31 [id number] 32 [id number] 33 [id number] 34 [id number] 35 [id number] 36 [id number] 37 [id number] 38 [id number] 39 [id number] 40 [id number] 41 [id number] 42 [id number] 43 [id number] 44 [id number] 45 [id number] 46 [id number] 47 [id number] 48 [id number] 49 [id number] 50 [id number] 51 [facility] [id number] 52 [id number] 53 [id number] 54 [facility] [address] 55 Verbal to SHADE [id number] by [id number] at 1545 on 12/16/15. Results read back accurately. Procedures Date CPT Code Description Status Comment 03/21/2018 35131 Anticoagulant MGMT For Patient Taking Warfarin, Completed Inc Review & Intr 03/15/2018 41196 Anticoagulant MGMT For Patient Taking Warfarin, Completed Inc Review & Intr 03/07/2018 45948 Anticoagulant MGMT For Patient Taking Warfarin, Completed Inc Review & Intr 03/02/2018 12965 Anticoagulant MGMT For Patient Taking Warfarin, Completed Inc Review & Intr 12/16/2015 99549 Nebulizer Treatment Completed 12/14/2015 09044 Nebulizer Treatment Completed 12/07/2015 16516 Nebulizer Treatment Completed 01/04/2013 Mammogram Completed NORMAL 08/28/1998 Bone Mineral Density Test Completed Encounters Type Date Location Provider CPT E/M Dx Office Visit 04/02/2018 3:00p [place] [address] R23.8 M79.601 Office Visit 02/02/2018 4:30p [place] [address] I69.852 Office Visit 01/05/2018 4:00p [place] [address] N39.0 Office Visit 06/01/2017 4:00p [place] [address] H81.01 Z23 Office Visit 02/20/2017 1:30p Main Office JEANIE Lee 20187 Z00.00 Z12.31 Office Visit 01/12/2017 3:45p Main Office JEANIE Woods 07358 N95.0 I69.852 Office Visit 11/04/2016 11:45a Main Office JEANIE Lee 64785 N39.0 Office Visit 10/10/2016 11:45a Main Office JEANIE Lee 09813 R10.9 Office Visit 09/30/2016 10:30a Main Office JEANIE Lee 08870 N85.2 E78.2 Office Visit 01/15/2016 11:00a Main Office JEANIE Lee 47248 I69.852 Z23 Office Visit 12/16/2015 4:15p Main Office JEANIE Lee 64245 J18.9 Office Visit 12/14/2015 4:00p Main Office Jennyfer Angel [facility]- [address] J18.9 Office Visit 12/07/2015 11:45a Main Office Jennyfer Angel [facility]- [address]494 J20.9 R31.9 Office Visit 11/10/2015 9:30a Main Office Jennyfer Cartagenakelvey [facility] [address] Z51.81 I69.852 M62.3 Plan of Care Future Appointment(s):04/09/2018 4:30 pm - Jessica Guajardo [employer] at Main [facility]fpne6804/02/2018 - Jessica Guajardo, NPR23.8 Other skin changesComments:No acute concerns today.Patient to continue home care as she has which including changing dressing, keeping area clean and dry, and monitoring for new/worsening symptomsPatient to return for reassessment in one weekTdap not given at Urgent Care and it has been 5 ys therefore given today.Follow up:follow up in one wk for wound dbywtwoU44.601 Pain in right armComments:No acute concerns today.Less than 24 to 48 hrs from onset and sleeping on it wrong. Discussed home supportive care and monitoring for new/worsening symptoms.Will reassess at follow up.
--- NOTE | 2018-04-24 07:36 | ED ---
Lower Extremity - HPI Summary HPI Summary: Patient presents with 4 day history of purulent drainage, redness and pain about a sore on her left lower anterior tibial region that she obtained a month ago. Upon initial injury which was a scrape against her wheelchair, she was seen at a medical facility. They washed out the wound and put her on 5 days of Keflex. Wound was wide but shallow and no sutures were placed. She reports this has been fine since and been followed by her PCP. She's had straw-colored drainage only and no redness, swelling or pain until 4 days ago when she developed mild purulent drainage and has had subsequent redness and soreness. She was seen yesterday at her PCPs office and given topical Silvadene cream along with Keflex 500 mg 4 times a day. She is taken 2 doses thus far. She is here today as her leg is more painful. She reports 7 on a 10. Denies fever, chills, nausea, vomiting, fatigue, chest pain, racing heart/palpitations. Has baseline SOB from COPD. Denies numbness tingling or weakness out of the norm but does report she has residual weakness and circulation issues in this lower extremity since a stroke she had years ago. She takes Coumadin for A. fib - last INR check was last Monday and she does not recall if her level was high or low but her dose was adjusted. Will check today. - History of Current Complaint Chief Complaint: EDExtremityLower Stated Complaint: LT LEG PAIN Time Seen by Provider: 04/24/18 06:46 Hx Obtained From: Patient, Family/Nib Finisher - son Pain Intensity: 9 - Allergies/Home Medications Allergies/Adverse Reactions: Allergies Allergy/AdvReac Type Severity Reaction Status Date / Time amoxicillin [From Augmentin] Allergy Diarrhea Verified 04/24/18 06:31 clavulanic acid Allergy Diarrhea Verified 04/24/18 06:31 [From Augmentin] Home Medications: Home Medications Cephalexin 500 mg PO QID 04/24/18 [History Confirmed 04/24/18] PMH/Surg Hx/FS Hx/Imm Hx Endocrine/Hematology History: Denies: Hx Diabetes, Hx Systemic Lupus Erythematosus, Hx Thyroid Disease Cardiovascular History: Reports: Hx Angina, Hx Hypercholesterolemia, Hx Hypertension, Hx Valvular Heart Disease - MVP, Other Cardiovascular Problems/ Disorders - cardiac arrhythmia Denies: Hx Congestive Heart Failure, Hx Coronary Artery Disease, Hx Myocardial Infarction Respiratory History: Reports: Other Respiratory Problems/Disorders - RIGHT LUNG CA Denies: Hx Asthma, Hx Chronic Obstructive Pulmonary Disease (COPD) - "MILD EMPHYSEMA" GI History: Denies: Hx Ulcer History: Denies: Hx Dialysis, Hx Renal Disease Musculoskeletal History: Denies: Hx Rheumatoid Arthritis, Hx Osteoporosis Neurological History: Reports: Hx CVA - Cancer History Cancer Type, 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 Hx Chemotherapy: No - Surgical History Surgery Procedure, Year, and Place: gallbladder, appendectomy, tonsillectomy Infectious Disease History: No Infectious Disease History: Denies: Hx Hepatitis, Hx Human Immunodeficiency Virus (HIV), Traveled Outside the [place] in Last 30 Days - Family History Known Family History: Positive: Other Negative: Cardiac Disease, Hypertension, Diabetes - Social History Alcohol Use: Occasionally Alcohol Amount: 2 BEERS DAILY Substance Use Type: Reports: None Smoking Status (MU): Former Smoker Have You Smoked in the Last Year: No Review of Systems All Other Systems Reviewed And Are Negative: Yes Physical Exam Vital Signs On Initial Exam: Initial Vitals Temp Pulse Resp BP Pulse Ox 98.5 F 61 18 115/74 93 04/24/18 06:28 04/24/18 06:28 04/24/18 06:28 04/24/18 06:28 04/24/18 06:28 Diagnostics - Vital Signs Vital Signs Temp Pulse Resp BP Pulse Ox 04/24/18 06:28 98.5 F 61 18 115/74 93 - Laboratory Result Diagrams: 04/24/18 07:41 04/24/18 07:41 Lab Statement: Any lab studies that have been ordered have been reviewed, and results considered in the medical decision making process. Lower Extremity Course/Dx - Diagnoses Provider Diagnoses: Cellulitis and abscess of leg Discharge - Sign-Out/Discharge Documenting (check all that apply): Patient Departure - Discharge Plan Condition: Stable Disposition: HOME Prescriptions: DOXYcycline CAP(*) [DOXYcycline 100MG CAP(*)] 100 mg PO BID #20 cap Patient Education Materials: Cellulitis (ED) Referrals: Matt Houser MD [Primary Care Provider] - Additional Instructions: You appear to have cellulitis from a chronic wound. It is important that you continue your Keflex and a new antibiotic, doxycycline, has been added to your regimen to cover additional organisms. For pain and to reduce swelling, it is important to keep your leg elevated. You may continue to wash your wound daily and apply Silvadene however it is also recommended that you try warm Epsom salt compresses to allow the wound to drain as needed and reduce swelling. You may take Tylenol Extra Strength for pain as needed. This is an jpco-fmm-vyiqpey medication. The antibiotics you're taking may cause your Coumadin level to increase. Today your level is 1.6 (this is subtherapeutic). Follow-up and have a repeat lab in the next 3-5 days in an effort to keep this level well controlled. Is also important that you follow up with your PCP in 3-4 days for recheck of your wound. It may get a little worse before it gets better until the antibiotics can fully penetrate tissue. If in the meantime however you develop fever, nausea/vomiting, fatigue, weakness, red streaking up into your thigh, return to the emergency department. - Billing Disposition and Condition Condition: STABLE Disposition: Home
[2018-04-24 07:51] LABS: ABS Basophils 0 10^3/ul (0-0.2); ABS Eosinophils 0.1 10^3/ul (0-0.6); ABS Lymphocytes 1.6 10^3/ul (1.0-4.8); ABS Monocytes 0.6 10^3/ul (0-0.8); ABS Neutrophils 3.1 10^3/ul (1.5-7.7); ABS Nucleated RBC 0 10^3/ul; Eosinophil % 1.6 % (0-6); Hematocrit 35 % (35-47); Hemoglobin 11.7 g/dl (12.0-16.0); Mean Corpuscular HGB Conc 33 g/dl (31-36); Mean Corpuscular Hemoglobin 32 pg (27-31); Mean Corpuscular Volume 95 fL (80-97); Mean Platelet Volume 7.6 um3 (7.4-10.4); Nucleated Red Blood Cells % 0.1; Platelet Count 122 10^3/ul (150-450); Red Blood Count 3.69 10^6/ul (4.00-5.40); Red Cell Distribution Width 15 % (10.5-15); White Blood Count 5.4 10^3/ul (3.5-10.8)
[2018-04-24 08:01] LABS: INR 1.68 (0.77-1.02)
[2018-04-24] MEDS ORDERED: Acetaminophen TAB* 325 MG PO ONE (08:03)
[2018-04-24 08:06] LABS: EGFR Non-African American 71.3 (>60)
--- NOTE | 2018-04-24 08:52 | RAD ---
HISTORY: Left lower extremity pain and edema after falling out of the wheelchair a few weeks earlier TECHNIQUE: Multiple transverse and longitudinal ultrasound images were obtained of the veins of the left lower extremity using grayscale, color Doppler, and spectral Doppler imaging with and without compression and with augmentation. FINDINGS: VEINS: The common femoral vein, deep femoral vein, femoral vein and popliteal vein are compressible throughout their course, with normal flow on color Doppler imaging and normal response to augmentation on spectral Doppler imaging. SOFT TISSUES: Grossly normal. No large popliteal fossa cyst was identified. IMPRESSION: No sonographic evidence of deep vein thrombosis.
[2018-04-24 09:21] VITALS: BP 115/64
== END 2018-04-24 09:30 | disposition home or self-care (01) ==
LOC: ED 06:25
DX: L02.416 Cutaneous abscess of left lower limb (principal); I69.359 Hemiplegia and hemiparesis following cerebral infarction affecting unspecified side; J44.9 Chronic obstructive pulmonary disease, unspecified; I48.91 Unspecified atrial fibrillation; Z79.01 Long term (current) use of anticoagulants; Z88.3 Allergy status to other anti-infective agents; Z87.891 Personal history of nicotine dependence
CPT/HCPCS: 36415; 80053; 83605; 85025; 85610; 86140; A9270-GY

== ENCOUNTER 2018-11-17 11:42 | Emergency (ER) | payer MEDICARE ==
[2018-11-17 14:17] VITALS: BP 107/73
--- NOTE | 2018-11-18 06:07 | ED ---
Complex/Multi-Sys Presentation - HPI Summary HPI Summary: Patient is a 73-year-old female with a history of remote stroke in 2003 presenting to the ED after a fall. Patient states she was transferring from the wheelchair to her chair, slipped and fell, hitting the occipital portion of her head. Small amount of swelling noted. Patient denies any LOC or bleeding from the area. Denies any confusion, memory loss, visual changes. Patient states she is at her baseline. She is currently taking warfarin for atrial fibrillation. At baseline, patient is weak to the left side with minimal range of motion to the left arm. Patient lives alone, however has her own place within her son's home. She is able to transfer from chair to chair and use the restroom without assistance. She states she is fairly independent. She noticed her R knee was bothering her just before she fell, and it might have "gave out." - History Of Current Complaint Chief Complaint: EDHeadInjury Time Seen by Provider: 11/17/18 12:05 Hx Obtained From: Patient Onset/Duration: Sudden Onset Timing: Constant Severity Currently: None Severity Initially: Mild Location: Negative Associated Signs And Symptoms: Negative: Confusion, Agitation, Dizziness, Recent Trauma, Remote Trauma - Allergies/Home Medications Allergies/Adverse Reactions: Allergies Allergy/AdvReac Type Severity Reaction Status Date / Time amoxicillin [From Augmentin] Allergy Diarrhea Verified 11/17/18 11:47 clavulanic acid Allergy Diarrhea Verified 11/17/18 11:47 [From Augmentin] PMH/Surg Hx/FS Hx/Imm Hx Previously Healthy: Yes Endocrine/Hematology History: Denies: Hx Diabetes, Hx Systemic Lupus Erythematosus, Hx Thyroid Disease Cardiovascular History: Reports: Hx Angina, Hx Hypercholesterolemia, Hx Hypertension, Hx Valvular Heart Disease - MVP, Other Cardiovascular Problems/ Disorders - cardiac arrhythmia Denies: Hx Congestive Heart Failure, Hx Coronary Artery Disease, Hx Myocardial Infarction Respiratory History: Reports: Other Respiratory Problems/Disorders - RIGHT LUNG CA Denies: Hx Asthma, Hx Chronic Obstructive Pulmonary Disease (COPD) - "MILD EMPHYSEMA" GI History: Denies: Hx Ulcer History: Denies: Hx Dialysis, Hx Renal Disease Musculoskeletal History: Denies: Hx Rheumatoid Arthritis, Hx Osteoporosis Neurological History: Reports: Hx CVA - Cancer History Cancer Type, Location and Year: LUNG Hx Chemotherapy: No - Surgical History Surgery Procedure, Year, and Place: gallbladder, appendectomy, tonsillectomy - Immunization History Hx Pertussis Vaccination: No Immunizations Up to Date: Yes Infectious Disease History: No Infectious Disease History: Denies: Hx Hepatitis, Hx Human Immunodeficiency Virus (HIV), Traveled Outside the [place] in Last 30 Days - Family History Known Family History: Positive: Other Negative: Cardiac Disease, Hypertension, Diabetes - Social History Occupation: Unemployed Lives: With Family Alcohol Use: Occasionally Alcohol Amount: 2 BEERS DAILY Hx Substance Use: No Substance Use Type: Reports: None Hx Tobacco Use: Yes Smoking Status (MU): Former Smoker Have You Smoked in the Last Year: No Review of Systems Constitutional: Negative Negative: Fever, Chills, Fatigue, Skin Diaphoresis Negative: Palpitations, Chest Pain Negative: Shortness Of Breath, Cough Negative: Abdominal Pain, Vomiting, Diarrhea Negative: Arthralgia, Myalgia Positive: Other - cephalohematoma Neurological: Negative Negative: Headache, Weakness, Paresthesia, Numbness All Other Systems Reviewed And Are Negative: Yes Physical Exam Triage Information Reviewed: Yes Vital Signs On Initial Exam: Initial Vitals Temp Pulse Resp BP Pulse Ox 97.5 F 60 18 125/82 96 11/17/18 11:44 11/17/18 11:44 11/17/18 11:44 11/17/18 11:44 11/17/18 11:44 Vital Signs Reviewed: Yes Appearance: Positive: Well-Appearing, Well-Nourished Skin: Positive: Warm, Skin Color Reflects Adequate Perfusion Head/Face: Positive: Normal Head/Face Inspection, Cephalohematoma Eyes: Positive: EOMI Neck: Positive: Supple, No Lymphadenopathy Respiratory/Lung Sounds: Positive: Clear to Auscultation, Breath Sounds Present Musculoskeletal: Positive: Normal, Strength/ROM Intact Neurological: Positive: Alert, Oriented to Person Place, Time, Speech Normal AVPU Assessment: Alert Diagnostics - Vital Signs Vital Signs Temp Pulse Resp BP Pulse Ox 11/17/18 14:16 97.9 F 61 18 107/73 93 11/17/18 11:44 97.5 F 60 18 125/82 96 - Laboratory Lab Statement: Any lab studies that have been ordered have been reviewed, and results considered in the medical decision making process. Complex Multi-Symp Course/Dx Course Of Treatment: During the course of treatment, the patient is evaluated for fall. There is a small cephalohematoma to the occipital area without bruising or abrasion. No laceration is noted. On exam, knee is able to flex and extend without pain. Denies n/t in the R lower extremity. Patient states she feels well, denies any headache, memory loss, confusion, she'll changes. She states she felt her right knee "gave out" which preceded her to fall. She denies any other injuries during this fall. Neuro exam intact. She has baseline weakness to the left upper and lower extremity from a stroke in 2003. Patient is currently on blood thinners, warfarin. CT brain obtained which is negative for any intracranial abnormalities. Discussed findings with patient. She states she is comfortable going home at this time she feels comfortable to transfer from her chair to her wheelchair and states she has her son at home to help her. She will be discharged at this time and she understands to return for any changing symptoms. She understands to transfer slowly as she is higher risks of falls. - Diagnoses Provider Diagnoses: Fall, Head injury Discharge - Sign-Out/Discharge Documenting (check all that apply): Patient Departure Patient Received Moderate/Deep Sedation with Procedure: No - Discharge Plan Condition: Stable Disposition: HOME Patient Education Materials: Head Injury (ED) Referrals: Matt Houser MD [Primary Care Provider] - Additional Instructions: As discussed, you need to return to the ED for any weakness or worsening symptoms I recommend having extra care at home right now Be very careful while you transfer from your chair - Billing Disposition and Condition Condition: STABLE Disposition: Home
== END 2018-11-17 14:17 | disposition home or self-care (01) ==
LOC: ED 11:42
DX: S09.90XA Unspecified injury of head, initial encounter (principal); S00.03XA Contusion of scalp, initial encounter; W01.0XXA Fall on same level from slipping, tripping and stumbling without subsequent striking against object, initial encounter; Y92.009 Unspecified place in unspecified non-institutional (private) residence as the place of occurrence of the external cause; R53.1 Weakness; I48.91 Unspecified atrial fibrillation; Z79.01 Long term (current) use of anticoagulants; Z86.73 Personal history of transient ischemic attack (TIA), and cerebral infarction without residual deficits; Z88.1 Allergy status to other antibiotic agents; Z88.0 Allergy status to penicillin; Z87.891 Personal history of nicotine dependence
CPT/HCPCS: 70450; 99281

== ENCOUNTER 2021-04-25 08:53 | Inpatient (IN) ==
[2021-04-25 09:26] LABS: ABS Lymphocytes 0.8 10^3/ul (1.0-4.8); ABS Monocytes 0.4 10^3/ul (0-0.8); ABS Neutrophils 4.9 10^3/ul (1.5-7.7); Eosinophil % 0.3 %; Hematocrit 38 % (35-47); Hemoglobin 12.8 g/dL (12.0-16.0); Lymphocyte % 13.6 %; Mean Corpuscular HGB Conc 34 g/dL (31-36); Mean Corpuscular Hemoglobin 33 pg (27-31); Mean Corpuscular Volume 97 fL (80-97); Mean Platelet Volume 8.2 fL (7.4-10.4); Platelet Count 110 10^3/uL (150-450); Red Blood Count 3.89 10^6 /uL (3.70-4.87); Red Cell Distribution Width 17 % (10-15); White Blood Count 6.2 10^3/uL (3.5-10.8)
[2021-04-25 09:32] LABS: INR 3.56 (0.86-1.15)
[2021-04-25 09:47] LABS: Albumin 4.3 g/dL (3.2-5.2); Albumin/Globulin Ratio 1.4 (1-3); Calcium 9.4 mg/dL (8.6-10.3); EGFR African American 69.2 (>60); EGFR Non-African American 57.2 (>60); Potassium 3.7 mmol/L (3.5-5.0); Total Bilirubin 1.5 mg/dL (0.2-1.0); Total Protein 7.3 g/dL (6.4-8.9)
[2021-04-25 09:50] LABS: Troponin I 0.02 ng/mL (<0.03)
[2021-04-25] MEDS ORDERED: Albuterol HFA INHALER 8 gm MDI INH ONE (10:02)
[2021-04-25] MEDS ORDERED: methylPREDNISolone 125 mg 2 ML VIAL IV ONE (10:02)
[2021-04-25 10:13] LABS: Magnesium 1.3 mg/dL (1.9-2.7)
[2021-04-25] MEDS ORDERED: Magnesium Sulfate 2 gm BAG 2 GM/50 ML BAG IVPB ONE (10:31)
[2021-04-25] MEDS ORDERED: Albuterol HFA INHALER 8 gm MDI INH PRN (12:48)
[2021-04-25] MEDS ORDERED: Al Hydrox/Mg Hydrox/Simet LIQ 30 ML UDC PO PRN (12:55)
[2021-04-25] MEDS ORDERED: NS 0.9% 1000 ml BAG 1,000 ML IV SCH (13:00)
[2021-04-25] MEDS ORDERED: Iodixanol (CONTRAST) 320 MG/ML 100 ML SDV IV ONE (13:09)
[2021-04-25 13:47] LABS: Troponin I 0.03 ng/mL (<0.03)
[2021-04-25] MEDS ORDERED: Azithromycin 500 mg/250 ml NS 500 MG/250 ML BAG IVPB SCH (16:00)
[2021-04-25] MEDS ORDERED: Warfarin DAILY REMINDER **NOTE FOLLOW UP SCH (17:00)
[2021-04-25] MEDS ORDERED: cefTRIAXone 1 gm/50 mL NS BAG 1 GM/50 ML BAG IVPB SCH (17:00)
[2021-04-26 02:32] LABS: Urine Appearance Cloudy; Urine Bilirubin Negative (Negative); Urine Blood 1+ (Negative); Urine Color Yellow; Urine Glucose 3+(>=500 mg/dL) (Negative); Urine Ketones Negative (Negative); Urine Nitrite Positive (Negative); Urine Protein Negative (Negative); Urine Specific Gravity 1.035 (1.002-1.030); Urine Urobilinogen Negative (Negative)
[2021-04-26 02:41] LABS: Urine Bacteria 1+ (Absent); Urine Red Blood Cell 2+(6-10/hpf) (Absent); Urine Squamous Epithelial Cell Present (Absent); Urine White Blood Cell Trace(0-5/hpf) (Absent)
[2021-04-26 09:24] LABS: ABS Lymphocytes 0.7 10^3/ul (1.0-4.8); ABS Monocytes 0.4 10^3/ul (0-0.8); ABS Neutrophils 5.7 10^3/ul (1.5-7.7); Hematocrit 34 % (35-47); Hemoglobin 11.6 g/dL (12.0-16.0); Lymphocyte % 10.2 %; Mean Corpuscular HGB Conc 34 g/dL (31-36); Mean Corpuscular Hemoglobin 33 pg (27-31); Mean Corpuscular Volume 98 fL (80-97); Platelet Count 107 10^3/uL (150-450); Red Blood Count 3.51 10^6 /uL (3.70-4.87); Red Cell Distribution Width 17 % (10-15); White Blood Count 6.7 10^3/uL (3.5-10.8)
[2021-04-26 09:40] LABS: INR 4.3 (0.86-1.15)
[2021-04-26 09:41] LABS: Calcium 8.8 mg/dL (8.6-10.3); EGFR African American 83.2 (>60); EGFR Non-African American 68.7 (>60); Magnesium 1.9 mg/dL (1.9-2.7); Potassium 3.9 mmol/L (3.5-5.0)
[2021-04-26 15:32] VITALS: BP 103/53
== END 2021-04-26 16:35 | disposition home or self-care (01) | DRG 872 ==
LOC: ED 08:53 → MED 12:55
PROVIDERS: ADMIT Internal Medicine; ATTEND Internal Medicine